=== PATIENT | female | born 1955 | race Two or more races ===

== ENCOUNTER 2023-01-30 15:38 | Emergency (ER) | payer BC, MEDICARE, SELFPAY ==
[2023-01-30 15:46] VITALS: BP 172/88; PULSE 103; RESP 18; TEMP 38.8; O2SAT 100; BMI 24.0
--- NOTE | 2023-01-30 15:55 | XR_ITS ---
[facility] [id number] Patient Name: FRANKLYN CHAMBERS MRN: [id number] date: 1955 Sex: F Assigned Patient Location: ED.MAIN Current Patient Location: ED.MAIN Accession/Order Number: [id number] Exam Date: 01/30/2023 16:40 Report Date: 01/30/2023 17:11 At the request of: GILMA FAGAN Procedure: XR chest 1V EXAMINATION: XR chest 1V 01/30/2023 2:09 PM PST HISTORY: cough TECHNIQUE: Single frontal view of the chest acquired. COMPARISONS: Chest x-ray 10/07/2020. FINDINGS: Lines/tubes/other: None. Heart and mediastinum: The heart and the mediastinum are within normal limits for technique. Bones: No acute osseous abnormality. Lungs: Minimal patchy bibasilar opacification. No pulmonary edema. Pleura: There is no significant pleural effusion or pneumothorax. Other: None. XR/XR chest 1V IMPRESSION: Minimal bibasilar opacification which could represent cicatricial changes from prior pneumonia, superimposition of normal tissues,, pneumonia, or aspiration. Electronically authenticated by: MAINOR SONI Date: 01/30/2023 17:11
[2023-01-30 16:01] VITALS: O2SAT 100
[2023-01-30] MEDS: ONDANSETRON 4 MG RAPDIS TABLET SL (16:09)
[2023-01-30] MEDS: ACETAMINOPHEN 500 MG TABLET 1000 MG PO (16:09)
[2023-01-30 16:31] LABS: Influenza Virus A Antigen Negative; Influenza Virus B Antigen Negative; Internal Control Within Normal Limits
[2023-01-30 16:32] LABS: SARS-CoV-2 Ag POSITIVE (NEGATIVE)
[2023-01-30 16:35] LABS: Bilirubin Urine NEGATIVE (NEGATIVE); Blood Urine SMALL (NEGATIVE); Clarity Urine CLEAR (CLEAR); Color Urine LT. YELLOW (YELLOW); Glucose Urine UA >=1000 mg/dL (NEGATIVE); Ketones Urine NEGATIVE (NEGATIVE); Leukocyte Esterase Urine NEGATIVE (NEGATIVE); Nitrite Urine NEGATIVE (NEGATIVE); Protein Urine >=300 mg/dL (NEG/TRACE); Urobilinogen Urine 0.2 EU/dL (0.2-1.0)
[2023-01-30 16:45] LABS: Bacteria Urine TRACE #/HPF (NONE SEEN); Cast Seen? NONE SEEN #/LPF (NONE SEEN); Crystals Seen? None Seen #/HPF (None Seen); Mucus Urine NONE SEEN (NONE SEEN); RBC Urine 0-2 #/HPF (0-2); Squamous Epithelial Cell Urine FEW #/LPF (NONE/RARE); WBC Urine NONE SEEN #/HPF (NONE SEEN)
--- NOTE | 2023-01-30 17:05 | ED.GENADUL1 ---
Documented by User: Justa Osborne 01/30/23 17:12 HPI - General Adult General Chief complaint: Nausea/Vomiting/Diarrhea Stated complaint: Nausea Time Seen by Provider: 01/30/23 15:55 Source: patient Mode of arrival: Wheelchair History of Present Illness HPI narrative: 67-year-old female presents with a chief complaint of fatigue and nausea vomiting fevers. States she began having a cough last evening woke this morning with chills nausea and vomited prior to arrival. She had been nauseated and unable take medications at home. Patient did not take anything for a fever at home she is febrile upon arrival 101.9 Fahrenheit. Patient does not appear toxic. She is type II diabetic and states has not taken her medications today as she was too nauseous. Patient's lung sounds are clear she is not hypoxic. She denies any known sick contacts wibut does work in the public. Related Data Previous Rx's Medication Instructions Recorded ondansetron 4 mg disintegrating 4 mg PO Q8H PRN nausea and 01/30/23 tablet vomiting 48 hours #7 tabs Allergies Allergy/AdvReac Type Severity Reaction Status Date / Time Sulfa (Sulfonamide Allergy Severe Verified 01/30/23 15:54 Antibiotics) Review of Systems ROS Narrative All Systems are negative except as noted/marked.All systems reviewed and otherwise negative Exam Narrative Exam Narrative: Nurses note and vital signs reviewed and patient is not hypoxic. General: The patient appears Ill but nontoxic, she is febrile Skin: Warm, dry, no pallor noted. There is no rash noted. Head: Normocephalic, atraumatic Eye: Normal conjunctiva, no drainage, EOMI. PERRL Ears, Nose, Mouth, and Throat: oral mucosa is moist. Nares patent. Mouth without vesicles. Ear canals patent. Tm's without Erythema Cardiovascular: Regular Rate and Rhythm Respiratory: Patient is in no distress, no accessory muscle use, lungs are clear to auscultation, no wheezing, rales or rhonchi Back: non-tender, no CVA tenderness bilaterally to percussion. GI: Normal bowel sounds, no tenderness to palpation, no masses appreciated. No rebound, guarding, or rigidity noted. Musculoskeletal: She moves all extremity is well no extremity swelling, Neurological: A&O x4, normal speech Psychiatric: Cooperative Constitutional Vital Signs, click to edit/add: Last Vital Signs Temp 101.9 F H 01/30/23 15:46 Pulse 103 H 01/30/23 15:46 Resp 18 01/30/23 15:46 BP 172/88 H 01/30/23 15:46 Pulse Ox 100 01/30/23 16:01 O2 Del Method Room Air 01/30/23 16:01 Course Vital Signs Vital signs: Vital Signs Temperature 101.9 F H 01/30/23 15:46 Pulse Rate 103 H 01/30/23 15:46 Respiratory Rate 18 01/30/23 15:46 Blood Pressure 172/88 H 01/30/23 15:46 Pulse Oximetry 100 01/30/23 15:46 Oxygen Delivery Method Room Air 01/30/23 15:46 Temperature 101.9 F H 01/30/23 15:46 Pulse Rate 103 H 01/30/23 15:46 Respiratory Rate 18 01/30/23 15:46 Blood Pressure 172/88 H 01/30/23 15:46 Pulse Oximetry 100 01/30/23 16:01 Oxygen Delivery Method Room Air 01/30/23 16:01 Medical Decision Making MDM Narrative Medical decision making narrative: Patient presented to the emergency room chief complaint of Ear, chills and nausea since. She states she did vomit on the way here to the emergency room. Been unable to get into her primary care physician as her symptoms started yesterday at her primary doctor is in [place]. Patient's vital signs are stable here in emergency room she was medicated here for her fever. fever improved with tylenol. Covid swab is positive.chest xray shows no acute active disease or pneumonia Patient states she feels much better going home. pt will be discharged home with covid instructions as well as Zofran for nausea. Patient encouraged to continue with fluids and take her medications when she gets home.Patient is off this week from work. She will be able to return to work as scheduled. Differential Diagnosis Differential Diagnosis: urI, pneumonia, covid, influenza Medical Records Medical records reviewed: Yes I reviewed the patient's medical records Lab Data Lab results reviewed: Yes I reviewed the patient's lab results Labs: Lab Results 01/30/23 01/30/23 Range/Units 15:55 16:26 Urine Color Lt. yellow (YELLOW) Urine Clarity Clear (CLEAR) Urine pH 6.0 (5.0-9.0) Ur Specific Dawson 1.020 (1.005-1.025) Urine Protein >=300 A (NEG/TRACE) mg/dL Urine Glucose (UA) >=1000 A (NEGATIVE) mg/dL Urine Ketones Negative (NEGATIVE) mg/dL Urine Occult Blood Small A (NEGATIVE) Urine Nitrite Negative (NEGATIVE) Urine Bilirubin Negative (NEGATIVE) Urine Urobilinogen 0.2 (0.2-1.0) EU/dL Ur Leukocyte Esterase Negative (NEGATIVE) Urine RBC 0-2 (0-2) #/HPF Urine WBC None seen (NONE SEEN) #/HPF Ur Squamous Epith Cells Few A (NONE/RARE) #/LPF Urine Crystals None seen (None Seen) #/HPF Urine Bacteria Trace A (NONE SEEN) #/HPF Urine Casts None seen (NONE SEEN) #/LPF Urine Mucus None seen (NONE SEEN) SARS-CoV-2 (PCR) Positive A (NEGATIVE) Influenza Type A Ag Negative Influenza Type B Ag Negative Imaging Data Chest x-ray: My impression: No active disease, no infiltrate Discharge Plan Discharge Chief Complaint: Nausea/Vomiting/Diarrhea Clinical Impression: COVID-19 Patient Disposition: Home, Self-Care Time of Disposition Decision: 17:01 Condition: Good Mode of Transportation: Private Vehicle Prescriptions / Home Meds: New ondansetron 4 mg tablet,disintegrating 4 mg PO Q8H PRN (Reason: nausea and vomiting) 2 Days Qty: 7 0RF Instructions: How To Wash Your Hands (ED), COVID-19 (Coronavirus Disease 2019) (ED) Stand Alone Forms: Portal Instructions Referrals: Physician,Non-Staff, [Primary Care Provider] - 1 week Discharge Date/Time: 01/30/23 17:18 Documented by User: Víctor Keys MD 01/30/23 20:28 HPI - General Adult General Chief complaint: Nausea/Vomiting/Diarrhea Stated complaint: Nausea Time Seen by Provider: 01/30/23 15:55 Related Data Previous Rx's Medication Instructions Recorded ondansetron 4 mg disintegrating 4 mg PO Q8H PRN nausea and 01/30/23 tablet vomiting 48 hours #7 tabs Allergies Allergy/AdvReac Type Severity Reaction Status Date / Time Sulfa (Sulfonamide Allergy Severe Verified 01/30/23 15:54 Antibiotics) Exam Constitutional Vital Signs, click to edit/add: Last Vital Signs Temp 101.9 F H 01/30/23 15:46 Pulse 103 H 01/30/23 15:46 Resp 18 01/30/23 15:46 BP 172/88 H 01/30/23 15:46 Pulse Ox 100 01/30/23 16:01 O2 Del Method Room Air 01/30/23 16:01 Course Vital Signs Vital signs: Vital Signs Temperature 101.9 F H 01/30/23 15:46 Pulse Rate 103 H 01/30/23 15:46 Respiratory Rate 18 01/30/23 15:46 Blood Pressure 172/88 H 01/30/23 15:46 Pulse Oximetry 100 01/30/23 15:46 Oxygen Delivery Method Room Air 01/30/23 15:46 Temperature 101.9 F H 01/30/23 15:46 Pulse Rate 103 H 01/30/23 15:46 Respiratory Rate 18 01/30/23 15:46 Blood Pressure 172/88 H 01/30/23 15:46 Pulse Oximetry 100 01/30/23 16:01 Oxygen Delivery Method Room Air 01/30/23 16:01 Medical Decision Making MDM Narrative Medical decision making narrative: Patient presented to the emergency room chief complaint of Ear, chills and nausea since. She states she did vomit on the way here to the emergency room. Been unable to get into her primary care physician as her symptoms started yesterday at her primary doctor is in [place]. Patient's vital signs are stable here in emergency room she was medicated here for her fever. fever improved with tylenol. Covid swab is positive.chest xray shows no acute active disease or pneumonia Patient states she feels much better going home. pt will be discharged home with covid instructions as well as Zofran for nausea. Patient encouraged to continue with fluids and take her medications when she gets home.Patient is off this week from work. She will be able to return to work as scheduled. I, Dr Keys, have reviewed the above progress note and course of action in the ER; agree with the above. I have personally seen and evaluated this patient, gone over history and physical, and discussed disposition and treatment plan with the patient. Lab Data Labs: Lab Results 01/30/23 01/30/23 Range/Units 15:55 16:26 Urine Color Lt. yellow (YELLOW) Urine Clarity Clear (CLEAR) Urine pH 6.0 (5.0-9.0) Ur Specific Dawson 1.020 (1.005-1.025) Urine Protein >=300 A (NEG/TRACE) mg/dL Urine Glucose (UA) >=1000 A (NEGATIVE) mg/dL Urine Ketones Negative (NEGATIVE) mg/dL Urine Occult Blood Small A (NEGATIVE) Urine Nitrite Negative (NEGATIVE) Urine Bilirubin Negative (NEGATIVE) Urine Urobilinogen 0.2 (0.2-1.0) EU/dL Ur Leukocyte Esterase Negative (NEGATIVE) Urine RBC 0-2 (0-2) #/HPF Urine WBC None seen (NONE SEEN) #/HPF Ur Squamous Epith Cells Few A (NONE/RARE) #/LPF Urine Crystals None seen (None Seen) #/HPF Urine Bacteria Trace A (NONE SEEN) #/HPF Urine Casts None seen (NONE SEEN) #/LPF Urine Mucus None seen (NONE SEEN) SARS-CoV-2 (PCR) Positive A (NEGATIVE) Influenza Type A Ag Negative Influenza Type B Ag Negative Discharge Plan Discharge Chief Complaint: Nausea/Vomiting/Diarrhea Clinical Impression: COVID-19 Patient Disposition: Home, Self-Care Time of Disposition Decision: 17:01 Condition: Good Mode of Transportation: Private Vehicle Prescriptions / Home Meds: New ondansetron 4 mg tablet,disintegrating 4 mg PO Q8H PRN (Reason: nausea and vomiting) 2 Days Qty: 7 0RF Instructions: How To Wash Your Hands (ED), COVID-19 (Coronavirus Disease 2019) (ED) Stand Alone Forms: Portal Instructions Referrals: Physician,Non-Staff, MD [Primary Care Provider] - 1 week Discharge Date/Time: 01/30/23 17:18
== END 2023-01-30 17:18 | disposition home or self-care (01) ==
PROVIDERS: Physician Assistant; Emergency Provider Emergency Medicine
DX: U07.1 COVID-19 (principal); R50.9 Fever, unspecified; E11.9 Type 2 diabetes mellitus without complications
CPT/HCPCS: 71045; 81001; 87804; 87811; 99285

== ENCOUNTER 2025-01-26 15:20 | Emergency (ER) | payer MEDICARE, MEDICAID, SELFPAY ==
--- OUTSIDE RECORDS SUMMARY | 2023-11-05 09:45 | XMS_ITS ---
Author Organization [facility] in [place] Address [address] [place] [address] Care Team Providers Care Duplicator Punch Set Up Operator Name Role Phone Agustin Licona Primary Care Provider REASON FOR VISIT discuss thyroid biopsy Encounters Encounter Location Date Provider Diagnosis [place] [address] [place] [address] 11/05/2023 Agustin Licona Plan Of Treatment Next Appt Details Provider Name:Agustin neves, 06/14/2025 02:00:00 PM, [address] [place], [address], Progress Notes * Milli MONROYDOB:1955 (69 yo F)Acc No.[id number]:11/05/2023 UNLOCKED PROGRESS NOTE Established Patient: Milli CAMPOS :?ELIAS BeachOB:1955???Age:68 Y ???Sex:FemaleDate:4Phone:[phone]:[address] [place] [address] Subjective: * Chief Complaints: * 1 . Discuss thyroid biopsy. * Medical History: Objective: * Vitals: Assessment: Plan: * Treatment: * * Electronic signature of Agustin Licona DO, [id number] on 01/26/2025 at 04:23 PM ESTSign off status: PendingVisit Status:?R/S (Rescheduled) * Provider: Rajan Licona DO Date: 0 11/05/2023 Generated for Printing/Faxing/eTransmitting on:?01/26/2025 04:23 PM EST
--- OUTSIDE RECORDS SUMMARY | 2024-01-06 10:15 | XMS_ITS ---
Author Organization [facility] in [place] Address [address] [place] [address] Care Team Providers Care Trouble Locater Name Role Phone Agustin Licona Primary Care Provider [phone] REASON FOR VISIT -6 Month Follow Up- Encounters Encounter Location Date Provider Diagnosis [address] [address] 01/06/2024 Agustin Licona Plan Of Treatment Next Appt Details Provider Name:Agustin neves, 06/14/2025 02:00:00 PM, [address] [place], [address], Progress Notes * Milli MONROYDOB:1955 (69 yo F)Acc No.[id number]:01/06/2024 UNLOCKED PROGRESS NOTE Established Patient: Milli CAMPOS :?ELIAS BeachOB:1955???Age:68 Y ???Sex:FemaleDate:4Phone:[phone]:[address] [place] [address] Subjective: * Chief Complaints: * 1 . -6 Month Follow Up-. * Medical History: Objective: * Vitals: Assessment: Plan: * Treatment: * * Electronic signature of Agustin Licona DO, [id number] on 01/26/2025 at 04:23 PM ESTSign off status: PendingVisit Status:?R/S (Rescheduled) * Provider: Rajan Licona DO Date: 03/07/2023 Generated for Printing/Faxing/eTransmitting on:?01/26/2025 04:23 PM EST
--- OUTSIDE RECORDS SUMMARY | 2024-02-01 08:15 | XMS_ITS ---
Author Organization [facility] in [place] Address [address] [place] [address] Care Team Providers Care Iron Miner Name Role Phone Agustin Licona Primary Care Provider REASON FOR VISIT -6 Month Follow Up- Encounters Encounter Location Date Provider Diagnosis [place] [address] [place] [address] 02/01/2024 Agustin Licona Plan Of Treatment Next Appt Details Provider Name:Agutsin neves, 06/14/2025 02:00:00 PM, [address] [place], [address], Progress Notes * Milli MONROYDOB:1955 (69 yo F)Acc No.[id number]:02/01/2024 UNLOCKED PROGRESS NOTE Established Patient: Milli CAMPOS :?ELIAS BeachOB:1955???Age:68 Y ???Sex:FemaleDate:4Phone:[phone]:[address] [place] [address] Subjective: * Chief Complaints: * 1 . -6 Month Follow Up-. * Medical History: Objective: * Vitals: Assessment: Plan: * Treatment: * * Electronic signature of Agustin Licona DO, [id number] on 01/26/2025 at 04:22 PM ESTSign off status: PendingVisit Status:?CANC (Cancelled) * Provider: Rajan Licona DO Date: 1 04/03/2023 Generated for Printing/Faxing/eTransmitting on:?01/26/2025 04:22 PM EST
--- OUTSIDE RECORDS SUMMARY | 2024-02-15 08:45 | XMS_ITS ---
Author Organization The [facility] in [place] Address [address] [place] [address] Care Team Providers Care Boarding Mother Name Role Phone Agustin Licona Primary Care Provider Encounters Encounter Location Date Provider Diagnosis [place] [address] [place] [address] 02/15/2024 Agustin Licona Plan Of Treatment Next Appt Details Provider Name:Agustin neves, 06/14/2025 02:00:00 PM, [address] [place], [address], Progress Notes * REYES MilliDOB:1955 (69 yo F)Acc No.[id number]:02/15/2024 UNLOCKED PROGRESS NOTE Established Patient: Milli CAMPOS :?Agustin Licona DODOB:1955???Age:68 Y ???Sex:FemaleDate:02/15/2024Phone:[phone]:[address] [place] [phone] Subjective: * Chief Complaints: * * Medical History: Objective: * Vitals: Assessment: Plan: * Treatment: * * Electronic signature of Agustin Licona DO, [id number] on 01/26/2025 at 04:23 PM ESTSign off status: PendingVisit Status:?R/S (Rescheduled) * Provider: Rajan Licona DO Date: 0 02/15/2024 Generated for Printing/Faxing/eTransmitting on:?01/26/2025 04:23 PM EST
--- OUTSIDE RECORDS SUMMARY | 2024-02-19 06:15 | XMS_ITS ---
Author Organization The [facility] in [place] Address [address] [place] [address] Care Team Providers Care Warehouse Shipping Supervisor Name Role Phone Agustin Licona Primary Care Provider REASON FOR VISIT follow up Encounters Encounter Location Date Provider Diagnosis [facility] [address] [place] [address] 02/19/2024 Agustin Licona Plan Of Treatment Next Appt Details Provider Name:Agustin neves, 06/14/2025 02:00:00 PM, [address] [place], [address], Progress Notes * Milli MONROYDOB:1955 (69 yo F)Acc No.[id number]:02/19/2024 UNLOCKED PROGRESS NOTE Established Patient: Milli CAMPOS :?ELIAS BeachOB:1955???Age:68 Y ???Sex:FemaleDate:02/19/2024Phone:[phone]:[address] [place] [address] Subjective: * Chief Complaints: * 1 . Follow up. * Medical History: Objective: * Vitals: Assessment: Plan: * Treatment: * * Electronic signature of Agustin Licona DO, [id number] on 01/26/2025 at 04:24 PM ESTSign off status: PendingVisit Status:?R/S (Rescheduled) * Provider: Rajan Licona DO Date: 0 02/19/2024 Generated for Printing/Faxing/eTransmitting on:?01/26/2025 04:24 PM EST
--- OUTSIDE RECORDS SUMMARY | 2024-12-14 09:00 | XMS_ITS ---
Author Organization The [facility] in [place] Address [address] [place] [address] Care Team Providers Care Yard Attendant Name Role Phone Agustin Licona Primary Care Provider REASON FOR VISIT -6 Month Follow Up-, DM EYE EXAM DUE Encounters Encounter Location Date Provider Diagnosis [facility] [address] [place] [address] 12/14/2024 Agustin Licona Plan Of Treatment Next Appt Details Provider Name:Agustin neves, 06/14/2025 02:00:00 PM, [address] [place], [address], Progress Notes * Milli MONROYDOB:1955 (69 yo F)Acc No.[id number]:12/14/2024 UNLOCKED PROGRESS NOTE Established Patient: Milli CAMPOS :?ELIAS BeachOB:1955???Age:69 Y ???Sex:FemaleDate:12/14/2024Phone:[phone]:[address] [place] [address] Subjective: * Chief Complaints: * 1 . -6 Month Follow Up-, DM EYE EXAM DUE. * Medical History: Objective: * Vitals: Assessment: Plan: * Treatment: * * Electronic signature of Agustin Licona DO, [id number] on 01/26/2025 at 04:22 PM ESTSign off status: PendingVisit Status:?R/S (Rescheduled) * Provider: Rajan Licona, DO Date: 02/14/2024 Generated for Printing/Faxing/eTransmitting on:?01/26/2025 04:22 PM EST
[2025-01-26 15:28] VITALS: BP 130/52; PULSE 99; TEMP 39.6; O2SAT 96; BMI 25.1
[2025-01-26 15:37] VITALS: O2SAT 88
[2025-01-26 15:39] VITALS: O2SAT 97
--- NOTE | 2025-01-26 15:43 | ECG_ITS ---
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 Measurements Intervals [place] Rate: 90 P: 47 UT: 138 QRS: -51 QRSD: 88 T: 85 QT: 332 QTc: 380 Interpretive Statements 1100 Sinus rhythm 2420 RSR (QR) in lead V1/V2, consistent with right ventricular conduction delay 2630 Left anterior fascicular block 4068 Nonspecific Twave abnormality 8003 Consistent with pulmonary disease 9150 abnormal ECG Compared to ECG 10/07/2020 19:17:07 Left ventricular hypertrophy no longer present Electronically Signed On 01-26-2025 18:12:56 EST by BA PIERSON M.D.
--- NOTE | 2025-01-26 15:43 | XR_ITS ---
[address] [address] Patient Name: FRANKLYN CHAMBERS MRN: [id number] date: 1955 Sex: F Assigned Patient Location: ER Current Patient Location: ER Accession/Order Number: [id number] Exam Date: 01/26/2025 16:08 Report Date: 01/26/2025 16:15 At the request of: YARON NAIR MD Procedure: XR chest 1V XR chest 1V 01/26/2025 4:12 PM SIGNS AND SYMPTOMS: ^sob, cough, nausea, fever PROTOCOL: Frontal radiograph of the chest COMPARISON: 01/30/2023 FINDINGS: The trachea is midline. Atherosclerotic changes are noted in the thoracic aorta. The heart and mediastinal structures are within normal limits. The lung parenchyma is clear. The bony thorax is intact. Degenerative changes are noted in the thoracic spine. XR/XR chest 1V IMPRESSION: No acute cardiopulmonary pathology. Impression dictated by: Romuol Hale M.D. 01/26/2025 4:15 PM Dictation Location: [place] [address] Electronically authenticated by: [id number] Y Date: 01/26/2025 16:15
[2025-01-26 15:58] VITALS: TEMP 39.7
[2025-01-26] MEDS: ACETAMINOPHEN 325 MG TABLET 650 MG PO (15:58)
[2025-01-26 15:59] LABS: SARS-CoV-2 Ag NEGATIVE (NEGATIVE)
[2025-01-26 16:01] LABS: Hematocrit 33.2 % (36.0-48.0); Hemoglobin 11.6 g/dL (12.0-16.0); Immature Granulocytes Abs Auto 0.02 10^3/uL (0.00-0.03); Immature Granulocytes Pct Auto 0.3 % (0.0-0.5); Lymphocytes Absolute Auto 1.1 10^3/uL (1.2-3.8); Mean Corpuscular HGB Conc 34.9 g/dL (29.9-35.2); Mean Corpuscular Hemoglobin 35.8 pg (26.7-34.0); Mean Corpuscular Volume 102.5 fL (81.0-99.0); Platelet Count 149 10^3/uL (150-450); Red Blood Count 3.24 10^6/uL (4.20-5.40); White Blood Count 6.8 10^3/uL (4.0-11.0)
[2025-01-26 16:07] VITALS: PULSE 92
[2025-01-26 16:13] LABS: INR 1.08; Prothrombin Time 11.3 sec (9.0-11.6)
[2025-01-26 16:15] LABS: Alanine Aminotransferase 45 U/L (14-59); Albumin Globulin Ratio 1.0; Albumin Level 3.4 g/dL (3.4-5.0); Alkaline Phosphatase 186 U/L (46-116); Anion Gap 5.9; Aspartate Amino Transferase 65 U/L (15-37); Blood Urea Nitrogen 5.0 mg/dL (7.0-18.0); Calcium 8.6 mg/dL (8.5-10.1); Carbon Dioxide 31.5 mmol/L (21.0-32.0); Chloride 101 mmol/L (98-107); Estimated GFR (African America 26 (>=60 mL/min/1.73m^2); Estimated GFR (Non-African Ame 22 (>=60 mL/min/1.73m^2); Globulin 3.3 g/dL; Glucose 139 mg/dL (74-106); Potassium 3.4 mmol/L (3.5-5.1); Sodium 135 mmol/L (136-145); Total Protein 6.7 g/dL (6.4-8.2)
[2025-01-26 16:21] LABS: Lactate/Lactic Acid 1.0 mmol/L (0.4-2.0)
--- OUTSIDE RECORDS SUMMARY | 2025-01-26 16:23 | XMS_ITS | Data Portability ---
Author Organization [place] - [employer] , [facility] Address [address] [address] Assessment Encounter Date Assessment Date Assessment LastModified by Organization Details LastModified Time 06/10/2024 06/10/2024 I spent _30 jeri shanita mfyp-rp-dljx with the patient. Over half of the time was spent in discussion of the diagnosis, the treatment plan including risks, benefits and alternatives, and the importance of adherence. Verbal Consents obtained for [facility]. Patient educated on program and services. Followup as below, patient educated that if a need arises they can contact [facility] provider as needed. Direct provider number provided to patient. Self Management Activities: Patient understands the importance of and agrees to the following Self Management Activities at today's visit: Blood pressure management, daily weights, blood sugar monitoring. Patient agrees to perform this daily. Recommendations: Next PCP appointment: Dr. Licona, sees every 6 mos Next Nephrology appointment: Dr. Garcia, sees monthly at dialysis Next Vascular appointment:Dr. Yuan, as needed Next appointment: with RADHA Kathy on 06/16/24, has questions about medicare/medicaid eligibility spfxzlax7Cxv iziygzcjn52/02/2025 16:17:05 Plan of Treatment Reminders Order DateSubmit DateProviderLast Modified ByOrganization DetailsLast Modified TimeDetailsAppointmentsNone recorded.LabNone recorded.ReferralNone recorded. ProceduresNone recorded.SurgeriesNone recorded.ImagingNone recorded.Medication OrdersNone recorded. Patient TargetsNo targets recorded. Patient Instructions Encounter Date Encounter Id Patient Instructions Last Modified By Organization Details Last Modified Time 06/10/2024 [id number] Top Three Goals: The Patient agrees to focus on improving the top three health conditions identified on today's DMITRY visit, as documented in the Assessment and Plan. Assigned prioritization reflects a collaborative effort, and includes input from the Patient. The patient will work on these conditions with a [facility] RN, who will create patient-specific care goals based on today's visit. The patient will receive a [facility] Plan of Care within 60 days, and follow-up visits with both the RN and DMITRY will be scheduled according to the personalized plan of care. Instructions: You had a [facility] Follow Up Visit today, as recommended by your health plan. Here are some important steps to help you stay healthy: 1. Get Moving: Aim for at least 30 minutes of physical activity, 5 days a week. 2. Eat Smart: Focus on a diet low in sodium and saturated fats to keep your heart healthy. 3. Avoid Harmful Habits: Stay away from smoking and limit or avoid alcohol. 4. Keep Vaccinations Current: Make sure your vaccinations are up to date. 5. Take Medications: Remember to take your daily medications as prescribed. 6. Stay on top of Screenings: Keep up with your preventive screening tests to catch any issues early. 7. Track Your Health: Monitor your blood pressure, weight, and other cifuentes health stats regularly. 8. Follow Up: Keep in touch with your [facility] Team, Primary Care Provider, and any specialists as scheduled to manage your health conditions. Following these recommendations will help you maintain your health and well-being. [email or web address] Not available 06/09/2024 12:43:44 I have reviewed the note by Nori James NP from the patient???s visit on 06/10/2024. While not physically present, I have reviewed all pertinent details and agree with the assessment and plan. Themedical decision-making and management are appropriate to the patient???s condition. Milli Monroy is a 69-year-old female with ESRD on ICHD (TTS schedule), longstanding HTN and DM2, and a maturing LUE AV fistula now in successful use. She is tolerating dialysis well with occasional post-HD hypotension. The patient has not been screened for transplant but expresses interest in attending an education session. She reports concern over potential side effects of anti- rejection medications given prior GI intolerance. Recent labs reflect stable ESRD parameters and A1c 5.2 (03/25/24). BP at visit was 141/61. No access concerns reported. Weight and BMI are stable at 116 lbs and 24.2, respectively. No acute hospitalizations since last follow-up. She remains on a non-statin regimen due to prior intolerance and continues phosphate binding therapy and Sensipar. Counseling today included dietary phosphorus and sodium management, blood pressure goals, and ongoing home glucose monitoring. Patient was educated on transplant, medication adherence,and dialysis self-care. We will continue close coordination with her dialysis center and mechanical engineering manager, Dr. Garcia. Patient will follow up with [facility] and PCP as scheduled. I support and agree with GERRI James???s plan of care and appreciate the comprehensive follow-up. Júnior Ramirez M.D. Attending Aqpcdasltkhubqqeio031Uii mlmvudfrd67/09/2025 07:50:02 Reason for Referral None Reported. Problems Name Problem SNOMED Code Status Onset Date Resolution Date Notes Provider Name and Address Organization Details Recorded Time End stage renal failure on dialysis [id number] Active 06/09/2024 Nori James DOCTOR OF AUDIOLOGY [address], [place], [address], [employer]06/09/2024 12:56:52Type 2 diabetes [id number] 06/09/2024Nori James DOCTOR OF AUDIOLOGY [address], [place], [address], [employer]06/09/2024 12:57:[id number]/01/2025Nori James DOCTOR OF AUDIOLOGY [address], [place], [address], [facility] [employer]06/09/2024 12:57:49Renal gvcppfysmryh17597297Mddqai 06/09/2024Nori James DOCTOR OF AUDIOLOGY [address], [place], [address], [facility] [employer]06/09/2024 12:57:59Arteriovenous [id number] 06/09/2024Nori James DOCTOR OF AUDIOLOGY [address], [place], [address], [facility] [employer]06/09/2024 12:58:07Mixed [id number] 06/09/2024Nori James DOCTOR OF AUDIOLOGY [address], [place], [address], [facility]06/09/2024 12:58:23Anemia of chronic lxbcnzh324485144Lrftef 06/09/2024Nori James DOCTOR OF AUDIOLOGY [address], [place], [place], [address] [place] [address], [facility]06/09/2024 12:59:09Hyperparathyroidism due to renal ugrjxciobylml53144722Shfeaz30/01/2025Nori James DOCTOR OF AUDIOLOGY [address], [place], [address] [place] [address], [facility]06/09/2024 12:59:26Qmakswbstfjlxfaih06728463Miemwi49/01/2025 Nori James DOCTOR OF AUDIOLOGY [address], [place], [address] [place] [address], [facility]06/09/2024 12:59:43Metabolic [id number] 06/09/2024Nori James DOCTOR OF AUDIOLOGY [address], [place], [address] [place] [address], [facility]06/09/2024 13:03:28 Problem Notes None recorded. Procedures Surgical History Date Name Laterality Status Provider Name and Address Organization Details Recorded Time creation of upper limb arteriovenous fistulacompletedNori James DOCTOR OF AUDIOLOGY [address], [place], [address] [place] [address], [facility]06/10/2024 15:55:25 Imaging Results None recorded. Procedure Notes None recorded. Medical Equipment None Reported. Allergies Allergen ID Allergen Name Allergen Category Reaction Reaction Severity Criticality Documentation Date Start Date Code Code System Note Provider Name and Address Organization Details Recorded Time 07192 Substance with sulfo namide structure and antibacterial mechanism of action (substance) medication rash Not available Not /02/[id number] Wheaton DOCTOR OF AUDIOLOGY [address], [place], [address] [place] [address], [facility]06/10/2024 10:30:4336780mqkuamehtcsqhkhecmmaxhdigoza Not available Not knsflqomw95/02/[id number] Wheaton DOCTOR OF AUDIOLOGY [address], [place], [address] [place] [address], [facility]06/10/2024 10:30:0811349kegwzdaodfgBrx availableNot available Not available Not gelxqiigh93/02/[id number] Wheaton DOCTOR OF AUDIOLOGY [address], [place], [address], [facility] - [employer]06/10/2024 10:31:1772976cfrezdaeamwrsrutajigleczplfdv Not available Not /02/[id number] Wheaton DOCTOR OF AUDIOLOGY [address], [place], [address], [facility] - [employer]06/10/2024 10:31:42 Medications Name Sig Start Date Stop Date Status Note LastModified by Organization Details LastModified Time pioglitazone 15 mg tablet TAKE 1 TABLET BY MOUTH DAILY activeNot AvailableNot AvailableNot AvailablePrilosec 40 mg capsule,delayed releaseTake 1 capsule every day by oral route.activeNot AvailableNot Available Not Availablehydralazine 25 mg tabletTAKE 1 TABLET BY MOUTH IN THE MORNING AND 1 TABLET AT RKYTENZ0406/10/2024ompletedNot AvailableNot AvailableNot Available sodium chloride 5 % eye ointmentAPPLY SMALL AMOUNT IN RIGHT EYE EVERY NIGHT AT BEDTIME DIRECTEDactiveNot AvailableNot AvailableNot Availablenifedipine ER 60 mg tablet,extended release 24 hrTAKE ONE TABLET BY MOUTH TWICE A DAY AT 8 AM AND 3 PMactiveNot AvailableNot AvailableNot Availablesodium bicarbonate 650 mg tabletTAKE 1 TABLET BY MOUTH DAILY06/10/2024ompletedNot AvailableNot Available Not Availableoxybutynin chloride ER 5 mg tablet,extended release 24 hrTAKE 1 TABLET BY MOUTH ONCE DAILY06/10/2024ompletedNot AvailableNot AvailableNot Availablehydralazine 50 mg tabletTAKE 1 TABLET BY MOUTH IN THE MORNING AND 1 TABLET BEFORE BEDTIMEactiveNot AvailableNot AvailableNot Availabletimolol maleate 0.5 % eye dropsINSTILL 1 DROP INTO RIGHT EYE EVERY MORNING DIRECTED activeNot AvailableNot AvailableNot Availablenifedipine ER 60 mg tablet,extended releaseTAKE 1 TABLET BY MOUTH TWICE DAILY AT 8 AM AND 3 PM5completedNot AvailableNot AvailableNot Availableglipizide 5 mg tabletTAKE 1 TABLET BY MOUTH DAILY 30 MINUTES BEFORE BREAKFASTactiveNot AvailableNot AvailableNot Available Sensipar 60 mg tabletTake 1 tablet every day by oral route.activeNot Available Not AvailableNot Availablesevelamer carbonate 800 mg tabletTAKE 2 TABLETS BY MOUTH THREE TIMES DAILY WITH MEALSactiveNot AvailableNot AvailableNot Available Vitals None Recorded Social History None recorded. Functional Status None recorded. Mental Status None recorded. Family History Nothing Reported. Medical History No medical history recorded. Gynecological HistoryNo gynecological history recorded. Obstetrics History GPAL:G 0 P 0 0 0 0 Past Encounters Encounter ID Performer Location Encounter Start Date Encounter Closed Date Diagnosis/Indication Diagnosis SNOMED-CT Code Diagnosis ICD10 Code Diagnosis IMO Codes Diagnosis Note [id number] Nori James [facility] [employer] [address] [place] [address] 06/10/2024 15:23:00 06/24/2024 10:14:41 End stage renal failure on dialysis [id number] N18.6 Z99.2 087522 - ICHD TTS at [facility], follows with nephrology Dr. Garcia- ESRD due to longstanding HTN and diabetes- On HD since 12/2023- Access: Left arm AVF, vascular Dr. Yuan- Tolerating dialysis well, reports occasional cramping/ hypotension following treatment- Reports compliance with dialysis- Is not on transplant list, concerned she will have side effects from anti-rejection medicationsRenal hapftlofmypi14746500F88.9 3376 - BP during visit: 141/61- Patient does not check BP at home, reports overall good control with some hypotension at dialysis- Currently taking: nifedipine 60 mg BID, hydralazine 50 mg- Recommendations: Limit sodium 2g daily, Weight Reduction if applicable, 30min/5 days a week physical activity, limit alcohol consumption.-Call the clinic if persists > 130/80 or is < 100/70- BP Goal <130/80Type 2 diabetes rsbhohbj65180136A92.22 N18.6 Z99.2 [id number] -Controlled-Last HbA1c 5.2 on 03/25/24-taking actos and glipizide-Patient checks BG regularly, continue regular blood sugar checks.- Recommendations: Discussed exercise plan (30 mins/5days ) and increasing physical activity.- Discussed diet reduced processed foods, reduced intake of high fructose foods, avoiding high salt/canned foods, increased fresh natural foods, smoking cessation in active smokers- Goal A1c <7Anemia of chronic gvnznar565314828B62.8 97824 - chronic/stable anemia of CKD, last Hb in chart 9.0 on 12/2023- EPO/iron per protocol at dialysis fllfUjxvemncrucl96614698X66.5 9805 -K+ 4.4, low K+ diet dwjttjdoCctdgjjevaxufjfhf18903082I76.39 9949 -taking renvela 2 tabs with meals-discussed foods high in PO4 to avoid Health Concerns Section Related Observation LastModified by Organization Detai ls LastModified Time None Recorded Concern Status LastModified by Organization Details LastModified Time None Recorded Advance Directives Directive None Recorded Payers Insurance Date Sequence Insurance Name Policy Number Policy Day Covered Member ID Day Member ID Guarantor Name 06/24/2024 1 [employer] (MEDICARE REPLACEMENT/ADVANTAGE - HMO) [id number] Milli Monroy [id number] Milli Monroy Notes Date Note Type Note Provider Name and Address Orga nization Details Recorded Time 06/10/2024 text/html MH Standard HPI - HISTORICReported by PatientPreventative ScreeningsFor colorectal cancer (all patients, 45-75), patient reportsresults reviewed and documentedandcolonoscopy (every 10 years) result date (mm/dd/yyyy): 07/25/2020. For breast cancer (females, 52-74), patient reportsmammogram (due every 2 years) result date (mm/dd/yyyy): 05/20/2020.CKD ManagementFor statin, patient reportsnot prescribed due to: allergy/intolerance. For sglt2 inhibitors, patient reportsnot prescribed, not a candidate. For a1c (within 12 months), patient iwnfexfs4p - a1c recently completed,date (mm/dd/yyyy): 03/25/2024, andresult: 5.2 (mg/dl). For nsaids, patient reportsnot taking. For oral diabetes medication, patient reportstaking all oral diabetic medications as prescribed. For [employer] pharmacy documents, patient reportscomprehensive medication review (cmr) reviewed.ROS as noted in the HPI Patient seen today for telehealth assessment. Consent for telemedicine was obtained from the patient/ responsible republican. Visit was done via secure, interactive, audiovisual communication that permits real-time communication between the patient and the provider, through a HIPAA compliant telehealth platform, [employer]. Patient located at Home in City[place]State : [place] located at Home Office in City/ State: [place] Patient???s identity was confirmed with Driving License/ Other mode of identity. [employer] RN present in patient's home and took patient's vital signs: Yes Reasonable efforts have been made to maintain usual and customary patient confidentiality. Reason for telemedicine visit: provider availability The HPI consists of patient reported history and the provider's clinical interpretation. 06/10/24 Pleasant 69 yo female seen today for follow up of ESRD on ICHD, HTN, DM2. She had her CVC removed 3 weeks ago and is successfully dialyzing through AVF with no issues reported. Following with vascular Dr. Kwabena UREÑA. She is not interested in home HD at this time, discussed transplant. [facility] but is hesitant to pursue transplant because she states she has GIside effects from many medications and worries she will not be able to tolerate anti-rejection meds. She plans to attend a transplant education class. CLINICAL SUMMARY Milli Monroy is a 69 y/o Female with chronic kidney disease. [facility], indicating ESKD and currently receiving dialysis. [facility] by a health care sanitary technician. Medications were last reviewed by a pharmacist on May 10, 2024. Pharmacist recommends no changes. [facility] social workers are working with the patient to resolve the following concerns: Food or Basic Needs Shortage, Financial. LABS eGFR 10/31/2023 (11 mL/min/1.73) 08/18/2023 (13 mL/min/1.73) Creatinine 03/17/2024 (4.45mg/dL) 10/31/2023 (4.16 mg/dL) 08/18/2023 (3.52 mg/dL) Potassium 03/17/2024 (4.4 mmol/L) 10/31/2023 (4.1 mmol/L) 08/18/2023 (4.2 mmol/L) Bicarbonate (CO2) 03/17/2024 (21 mmol/L) 10/31/2023 (20 mmol/L) Albumin (Serum) No recent Vitamin D3 (25-OH) No recent Parathyroid Hormone (PTH), Intact No recent Albumin/Creatinine Ratio, Urine (uACR) No recent Hemoglobin A1c (A1c) 03/25/2024 (5.2 %) 03/01/2024 (5.0 %) Glucose 10/31/2023 (134 mg/dL) LDL No recent Triglycerides No recent White Blood Cell (WBC) Count No recent Hemoglobin No recent Iron No recent Ferritin No recent Total Iron Binding Capacity (TIBC) No recent CLINICAL HISTORY Was the patient hospitalized in the last 30 days? No [employer] CURRENT PROGRAM Please select the appropriate [employer] Program for this patient ECO - Dialysis Is patient in a Palliative Care Program? No, Patient is not enrolled in a Palliative Care Program [employer] Patient's Primary Language Korean Residence Status Owned or Rented Private Residence Are you currently employed? No MEDICATION Medication Review Completed Yes Is the patient taking all their prescription medications as prescribed? Yes Do you need help with any of your medications? No Do you have enough medication to get you through the next 30 days? Yes PATIENT REPORTED HEALTH CONDITIONS Does the patient have a history of kidney transplant? No Current Access Type AV Fistula Are there any concerns about your dialysis access? no Dialysis Modality ICHD Dialysis Days Thursday;;Thursday First Dialysis Date 2023-12-25 00:00:00 First D ialysis Setting IP Hospital-Planned First Use Dialysis Access Type CVC Kidney Transplant List Status Not Screened Kidney Transplant Notes patient interested Does patient have functioning blood pressure cuff? Yes Does the patient have a functioning glucometer? Yes, Standard Recording Glucose on Log No SOCIAL HISTORY Does the patient require any assistance from a device/equipment or person, with any of the follwing ADLs: Walking, Transferring, Feeding, Bathing, Grooming, Dressing, Toileting, Continence No Assistance Walking: Independent Assistance Transferring Independent Assistance Feeding Independent Assistance Bathing Independent Assistance Grooming Independent Assistance GettingDressed Independent Assistance Toileting Independent Incontinence No Incontinence Does the patient have any Durable Medical Equipment in the home to assist with Activities of Daily Living? NoHas the Patient had any falls in the last 3 months? No Does the Patient worry about falling or feel unsteady when walking? No Are there any concerns around the patient's cognitive status? No Are you worried or concerned that in the next two months you may not have stable housing that you own,rent, or stay in as part of a household? No Does your home have any problems that could make you sick or unsafe? (Examples: Pests, mold, smoke detectors not working, no heat, etc.) No In the past6 months, has anyone threatened to turn off your utilities? (Example: heat, electric, gas, water) No In the past 2 months, did you or others you live with eat smaller meals or skip meals because you didn't have money for food? No Do you have trouble finding or paying for a ride? No Have you ever had to make the choice of buying your medication versus a basic necessity such as food? No Within the past 6 months, does the patient report anyone (including family or friends) causing physicalharm, insulting or talking down to them, threatening them, screamed or cursed at them, or taken advantage of them financially? No Describe Patient's exercise level Little to No Exercise (Sedentary) What are the barriers that prevent the patient from being more physically active? Fatigue/lack of energy;Lack of motivation In a normal week, how many days does the patient consume alcohol? None What is the patient's current smoking status (tobacco or legal use of marijuana)? Never smoker In the past year have you used any medications that were not prescribed for you, or which you took more of than you were supposed to take? No What Matters Most: What is most important to the patientin regards to their personal health goals, and individual health outcome? staying alive Does the patient have a state advance directive in place? No Is the patient open to advance care planning discussion? Yes Does the patient have difficulty hearing? No Does the patient have difficulty seeing? Yes Vision/Hearing Impairment Additional Details wears glasses Adequacy of Caregiver Support Member independent PHQ 2-9 PHQ 2-9 Completed: Yes Little interest or pleasure in doing things Several days Feelingdown, depressed, or hopeless Not at all Total Score 1 Score Interpretation None-Minimal VITALS Height (FT-IN) 06/10/2024 (4 ft 10 in) Weight (LBS) 06/10/2024 (116.0 lbs) Body Mass Index (BMI) 06/10/2024 (24.2) Blood Pressure (Systolic/Diastolic) 06/10/2024 (141/61) Pain Scale Assessment (1-10) No recent O2 Sat % 06/10/2024 (99.0 %) Heart Rate 06/10/2024 (66.0) Respiratory Rate 06/10/2024 (14.0) Temperature (Fahrenheit) No recent Júnior Dow MD [address], [place], [address], [facility] [employer]06/17/2024 07:50:25 OBGyn Episode No OBEpisode recorded.
--- OUTSIDE RECORDS SUMMARY | 2025-01-26 16:23 | XMS_ITS | Clinical Summary ---
Author Organization [facility] Address [address] [place] [address] Care Team Providers Care Tornado Chaser Name Role Phone Unavailable Primary Care Provider Unavailabl e Encounters DateTypeDepartmentCare ZlueFxxztwzaesf21/09/2025Telephone [facility] Transplant [address] [place] [address] Kanchan Davies MA from Last 3 Months Social History Tobacco UseTypesPacks/DayYears UsedDateSmoking Tobacco: Never AssessedUT Safety & EnvironmentAnswerDate RecordedFear of Current or Ex-PartnerNot on file 04/02/2023Emotionally AbusedNot on file04/02/2023hysically AbusedNot on file 04/02/2023Sexually AbusedNot on file04/02/2023hysically or Sexually AbusedNot on file04/02/2023CommentsUnknownSex and Gender InformationValueDate RecordedSex Assigned at BirthNot on fileLegal VfyCmhgah36/29/2022 10:59 PM EDT Gender IdentityNot on fileSexual OrientationNot on file Plan of Treatment Health MaintenanceDue DateLast DoneCommentsCT Iocctlphaent43/15/1955Diabetes: Hemoglobin A1C1954FIT-DNA1954FIT1954Medicare Annual Wellness (AWV)1955 4174Vedpprnrgcmlo35/15/1955Diabetes: Retinopathy Lcmzymrek20/15/1965 Depression Boflzlgbg19/15/1967Pneumococcal Vaccine: 50+ Years (1 of 2 - PCV) 1973Zoster Vaccines (1 of 2)2004FOBT05/01/Fall Risk Vxxbercvl83/15/7242Twplsjvqb96/12/202304/OVID-19 Vaccine (1 - 2024- season)2024Influenza Vaccine (#1)2024dult Phbdszp8301/02/2025 01/02/20154225Zpadidodppo13/17/203106/olorectal Cancer Mklkijrie90/17/2031 HIB VaccinesAged OutNo longer eligible based on patient's age to complete this topicHPV VaccinesAged OutNo longer eligible based on patient's age to complete this topicIPV VaccinesAged OutNo longer eligible based on patient's age to complete this topicMeningococcal B VaccineAged OutNo longer eligible based on patient's age to complete this topicMeningococcal VaccineAged OutNo longer eligible based on patient's age to complete this topicRotavirus VaccinesAged Out No longer eligible based on patient's age to complete this topic Insurance
--- OUTSIDE RECORDS SUMMARY | 2025-01-26 16:23 | XMS_ITS | Patient Health Record ---
Author Organization [facility] in [place] Address [address] [place] [address] Care Team Providers Care Manager Utilization Management Name Role Phone Agustin Licona Primary Care Provider [phone] Allergies Allergen (clinical drug ingredient) Drug/Non Drug Allergy documented on EMR Reaction Allergy Type Onset Date Status Substance with sulfonamide s tructure and antibacterial mechanism of action (substance) Sulfa Antibiotics rash Drug Allergy ActivehydralazineHydralazinenausea and vomitingDrug AllergyActive Results Component Value Reference Range Notes HEMOGLOBIN A1C - IN OFFICE Reviewed date:03/25/2024 08:31:42 AM Interpretation:5.2 Performing Lab: Notes/Report: 5.2 HEMOGLOBIN A1C - IN OFFICE 5.2 4.4 - 6.4 Reason For Referral Reason Evaluate and Treat financial assistance, medicaid ramo pending, transportation Diagnosis 1 Chronic kidney disea se, stage 4 (severe) (N18.4) Referral Organization [facility] Referring Provider First Name Agustin Referring Provider Last Name Monae Referring Provider Speciality Family Med icine Referred Provider Social Work, [facility] QPD Referred Provider Specialty Social Work Services Referral Priority Routine Medications Medication SIG (Take, Route, Frequency, Duration) Notes Start Date End Date Status Cinacalcet HCl 30 MG 3 tablets Orally daily unsure on dose ActivehydrALAZINE HCl 50 MG1 tablet with food Orally Twice a dayActiveCalcitriol 0.25 MCG3 capsules Orally dailyActivePioglitazone HCl 15 MGTAKE 1 TABLET BY MOUTH DAILYActiveNIFEdipine ER 60 MG1 tablet on an empty stomach Orally bid 10/01/2022ctiveOmeprazole 40 MGTAKE 1 CAPSULE BY MOUTH DAILY 30 MINUTES BEFORE BREAKFAST; Duration: 90ActiveAuryxia 1 GM 210 MG(Fe)3 tablets Orally dailyActive glipiZIDE 5 MG1 tablet 30 minutes before breakfast Orally Once a dayActive Social History Tobacco Use: Social History Observation Description Date Details (start date - stop date) Never Smoker NA - NA Tobacco Use/Smoking Question Answer Notes Patient is a nonsmoker Alcohol Screen (Audit-C) Question Answer Notes Did you have a drink containing alcohol in the p ast year? No Uvqwvm6PwjufornyuxflwJckdhjje Problems Problem Type SNOMED Code ICD Code Onset Dates Problem Status W/U Status Risk Notes Problem Essential hypertension (50690421 ) Essential (primary) hypertension (I10) ActiveconfirmedProblemType II diabetes mellitus without complication (054318143) Type 2 diabetes mellitus without complications (E11.9)ActiveconfirmedProblem Gastro-esophageal reflux disease without esophagitis (611289265)Gastro- esophageal reflux disease without esophagitis (K21.9)ActiveconfirmedProblemAge- related osteoporosis (997805912)Age-related osteoporosis without current pathological fracture (M81.0)ActiveconfirmedProblemAnemia in chronic kidney disease (396532391)Anemia in chronic kidney disease (D63.1)Activeconfirmed ProblemNon-toxic multinodular goiter (45436350)Nontoxic multinodular goiter (E04.2)ActiveconfirmedProblemDiabetic renal disease (357826298)Type 2 diabetes mellitus with diabetic chronic kidney disease (E11.22)ActiveconfirmedProblem Diabetic renal disease (029991383)Type 2 diabetes mellitus with other diabetic kidney complication (E11.29)ActiveconfirmedProblemHyperglycemia due to type 2 diabetes mellitus (618722904824126)Type 2 diabetes mellitus with hyperglycemia (E11.65)ActiveconfirmedProblemVitamin D deficiency (97187299)Vitamin D deficiency, unspecified (E55.9)ActiveconfirmedProblemOverweight (551346262) Overweight (E66.3)ActiveconfirmedProblemHypercalcemia (38609031)Hypercalcemia (E83.52)ActiveconfirmedProblemAllergic rhinitis (25782459)Other allergic rhinitis (J30.89)ActiveconfirmedProblemDegeneration of cervical intervertebral disc (74574610)Other cervical disc degeneration, unspecified cervical region (M50.30)ActiveconfirmedProblemChronic kidney disease stage 4 (963759720)Chronic kidney disease, stage 4 (severe) (N18.4)ActiveconfirmedProblemChronic kidney disease stage 5 (819703423)Chronic kidney disease, stage 5 (N18.5)Active confirmedProblemEnd stage renal disease (60485116)End stage renal disease (N18.6)ActiveconfirmedProblemSecondary hyperparathyroidism of renal origin (64707710)Secondary hyperparathyroidism of renal origin (N25.81)Activeconfirmed ProblemOveractive bladder (881441568)Overactive bladder (N32.81)Activeconfirmed ProblemDysphagia (58137301)Dysphagia, unspecified (R13.10)ActiveconfirmedProblem Dependence on renal dialysis (028298292)Dependence on renal dialysis (Z99.2) ActiveconfirmedProblemPure hypercholesterolemia (950832925)Pure hypercholesterolemia, unspecified (E78.00)ActiveconfirmedProblemIrritable bowel syndrome (18173156)Mixed irritable bowel syndrome (K58.2)ActiveconfirmedProblem Imaging result abnormal (183486598)Abnormal findings on diagnostic imaging of other specified body structures (R93.89)Activeconfirmed Vital Signs Heart Rate 70 /min 12/21/2024 Respiratory Rate16 /min12/21/2024lood pressure ioqachxtq09 mm Hg06/13/2024 Wbdjzwtq01 %12/21/20246354Ahrjcu31 in12/21/2024lood pressure oqyxnyed719 mm Hg 06/13/20247476Qcqmdy584.3 lbs102/21/2024BMI25.14 kg/m212/21/2024 Encounters Encounter Location Date [facility] [address] [place] [address] 11/30/2024 gAustin Licona [address] [address]/Daniel [facility] [place] [address]/09/2024[facility] [place] [address]/05/2024[facility] [place] [address] [place] [address]/11/2024[facility] [place] [address] [place] [address]/[facility] [address] [place] [facility] [place] [address]/07/2024 [facility] [address] [place] [address]/[facility] [place] [address] [place] [address]/[facility] [place] [address] [place] [address]/[facility] [place] [address] [place] [address]/02/2024[facility] [place] [address] [place] [address]/[facility] [place] [address] [place] [address]/07/2024[facility] [place] [address] [place] [address]/09/2024[facility] [place] [address] [place] [address]/12/2024[facility] [place] [address] [place] [address]/03/2024[facility] [place] [address] [place] [address]/10/2024[facility] [place] [address] [place] [address]/[facility] [place] [address] [place] [address]/[facility] [address] [place] [facility] [place] [address]/05/2024[facility] [address] [place] [address]/07/2024Dani [address] [place] [address]/12/2024[facility] [address] [place] [address]/[facility] [address] [place] [address]/02/2024[address] [place] [address]/06/2024Dani Licona Encounter for Medicare annual wellness exam Z00.00 ; Body mass index [BMI] 24.0- 24.9, adult Z68.24 ; Gastro-esophageal reflux disease without esophagitis K21.9 ; Essential (primary) hypertension I10 ; Age-related osteoporosis without current pathological fracture M81.0 ; Vitamin D deficiency, unspecified E55.9 ; Anemia in chronic kidney disease D63.1 ; Secondary hyperparathyroidism of renal origin N25.81 ; Pure hypercholesterolemia, unspecified E78.00 ; Type 2 diabetes mellitus with diabetic chronic kidney disease E11.22 ; Chronic kidney disease, stage 5 N18.5 ; Dependence on renal dialysis Z99.2 and Noninfective gastroenteritis and colitis, unspecified K52.9[address] [place] [address]/[facility]UC[facility] HospitalType 2 diabetes mellitus with diabetic chronic kidney disease E11.22 ; Body mass index [BMI] 23.0-23.9, adult Z68.23 and Acute upper respiratory infection, unspecified J06.9[address] [place] [address]/01/2025[facility] Vitamin D deficiency, unspecified E55.9 ; Essential (primary) hypertension I10 ; Type 2 diabetes mellitus with diabetic chronic kidney disease E11.22 ; Encounter for screening mammogram for malignantneoplasm of breast Z12.31 ; Overweight E66.3 ; Body mass index [BMI] 25.0-25.9, adult Z68.25 ; Anemia in chronic kidney disease D63.1 ; End stage renal disease N18.6 and Dependence on renal dialysis Z99.2 Assessments Encounter Date Diagnosis (ICD Code) Assessment Notes Treatment Notes Treatment Clinical Notes Section Notes 06/13/2024 Encounter for Medicare annual we llness exam (ICD-10 - Z00.00) rec vaccines - flu/dtap/pn/shingrix/rsv - pt refuses rec dexa q2 years - refuses rec katherine yearly - refuses rec labs yearly rtc 1 year diet/exercise eye and dental exams yearly colonoscopy q10 years - UTD 06/13/2024ody mass index [BMI] 24.0-24.9, adult (ICD-10 - Z68.24)12/21/2024 Vitamin D deficiency, unspecified (ICD-10 - E55.9)lab12/21/2024Essential (primary) hypertension (ICD-10 - I10) continue med diet/exercise bp check daily controlled goal <130/80 monitor bmp and urine microalbumin yearly 02/24/2024Type 2 diabetes mellitus with diabetic chronic kidney disease (ICD-10 - E11.22) a1c today controlled bs check daily diet/exercise eye exam yearly - dilated foot exam daily 02/24/2024ody mass index [BMI] 23.0-23.9, adult (ICD-10 - Z68.23)02/24/2024 Acute upper respiratory infection, unspecified (ICD-10 - J06.9) rec claritin/flonase rtc prn 12/21/2024Type 2 diabetes mellitus with diabetic chronic kidney disease (ICD-10 - E11.22) monitor BS monitor a1c diet/exercise eye exam yearly - dilated foot exam daily 06/13/2024Gastro-esophageal reflux disease without esophagitis (ICD-10 - K21.9) diet stable 06/13/2024Essential (primary) hypertension (ICD-10 - I10) diet/exercise bp check daily goal <130/80 monitor bmp 12/21/2024Encounter for screening mammogram for malignant neoplasm of breast (ICD-10 - Z12.31)12/21/2024Overweight (ICD-10 - E66.3)diet/cogsnkvo55/05/2025 Age-related osteoporosis without current pathological fracture (ICD-10 - M81.0) rec prolia/reclast diet/exercise monitor dexa q2 years 06/13/2024Vitamin D deficiency, unspecified (ICD-10 - E55.9)monitor lab and adjust tx based on this12/21/2024ody mass index [BMI] 25.0-25.9, adult (ICD-10 - Z68.25)12/21/2024nemia in chronic kidney disease (ICD-10 - D63.1) stable monitor 06/13/2024nemia in chronic kidney disease (ICD-10 - D63.1) monitor cbc stable 06/13/2024Secondary hyperparathyroidism of renal origin (ICD-10 - N25.81) monitor cmp and PTH f/u neph as directed 12/21/2024End stage renal disease (ICD-10 - N18.6) f/u neph as directed continue meds HD 3 times a week 12/21/2024Dependence on renal dialysis (ICD-10 - Z99.2)see above06/13/2024Pure hypercholesterolemia, unspecified (ICD-10 - E78.00) labs yearly diet/exercise LDL goal <70 06/13/2024Type 2 diabetes mellitus with diabetic chronic kidney disease (ICD-10 - E11.22) bs control monitor a1c diet/exercise eye exam yearly - dilated foot exam daily monitor urine microalb yearly 06/13/2024hronic kidney disease, stage 5 (ICD-10 - N18.5)f/u neph as directed for HD 3 times a week and for labs06/13/2024Dependence on renal dialysis (ICD-10 - Z99.2)f/u neph as /05/2025Noninfective gastroenteritis and colitis, unspecified (ICD-10 - K52.9) diet rec fiber daily otc ?CT abd/pelvis Plan Of Treatment Pending Test Test Name Order Date LIPID PANEL (CHOL/TRIG/HDL/LDL) 12/22/19 25 VITAMIN D, 25 LEVEL (TOTAL) 12/21/2024 Thyroid biopsy 08/17/2023 Echocardiogram 2D M Mode w/ Doppler (noe sure RVSP) 11/05/2022 MAMM SCREEN BILAT DORA 3D GLOBAL* 2024 CMP (COMP MET DAN) w/eGFR CKD-EPI 2024 MICROALBUMIN w CREAT RATIO 12/21/2024 Next Appt Details Provider Name:Agustin neves, 06/14/2025 02:00:00 PM, [address] [facility], [place], [address], Insurance Providers Payer Name Payer Address Payer Phone Subscriber Number Group Number Insured Name Patient Relationship to Insured Coverage Start Date Coverage End Date [employer] [address] [place], [place] [phone] [id number] Maycol Monroy - patient is the [id number] 2024[place] [id number], OfeliaSelf - patient is the [id number] 2022 Medical (General) History Medical History History ICD Code glaucoma heartburn/acid refluxhypertensioncolon polypsDM with microalbuminuriaanemia of CKD 5CKD-5cad/MIhypercalcemiaC DDDosteoporosisthyroid nodulesvit D defSurgical History Surgery Date(Month/Year) L UE AVF - 2023 hyst without bsocholeb/l cataractscolonoscopy ~2020 +polyps - repeat at age 71
--- OUTSIDE RECORDS SUMMARY | 2025-01-26 16:23 | XMS_ITS | Encounter Summary ---
Author Organization [facility] Address [address] [place] [address] Care Team Providers Care Certified Nurse Aide Name Role Phone Unavailable Primary Care Provider Unavailabl e Encounter Details DateTypeDepartmentCare Team (Latest Contact Info)Rspowroraey17/09/2025Telephone [facility] Transplant [address] [place] [address] Kanchan Davies MA Social History Tobacco UseTypesPacks/DayYears UsedDateSmoking Tobacco: Never AssessedUT Safety & EnvironmentAnswerDate RecordedFear of Current or Ex-PartnerNot on file 04/02/2023Emotionally AbusedNot on file04/02/2023hysically AbusedNot on file 04/02/2023Sexually AbusedNot on file04/02/2023hysically or Sexually AbusedNot on file04/02/2023CommentsUnknownSex and Gender InformationValueDate RecordedSex Assigned at BirthNot on fileLegal WzyFdibfw84/29/2022 10:59 PM EDT Gender IdentityNot on fileSexual OrientationNot on filedocumented as of this encounter Plan of Treatment Not on file documented as of this encounter Visit Diagnoses Not on filedocumented in this encounter
--- OUTSIDE RECORDS SUMMARY | 2025-01-26 16:23 | XMS_ITS | Clinical Summary ---
Author Organization [facility] Healthcare Address [address] [facility] [place] [address] Care Team Providers Care Embossing Toolsetter Name Role Phone Joey Webster MD Primary Care Provider [phone] Allergies Active AllergyReactionsCriticalityNoted DateCommentsSulfa AntibioticsHives 11/04/2022 Medications MedicationSigDispense QuantityRefillsLast FilledStart DateEnd DateStatus SITagliptin (Januvia) 25 MG tablet Take 25 mg by mouth in the morning.Active calcitriol (Rocaltrol) 0.25 MCG capsule Take 0.25 mcg by mouth in the morning.Active amLODIPine (Norvasc) 10 MG tablet Take 10 mg by mouth in the morning.12/17/2021ctive glipiZIDE (Glucotrol) 5 MG tablet Take 5 mg by mouth in the morning.09/17/2022ctive omeprazole (PriLOSEC) [address] capsule Take 40 mg by mouth in the morning.09/17/2022ctive timolol (Timoptic) 0.25 % ophthalmic solution 08/24/2022ctive predniSONE (Deltasone) 10 MG tablet Indications:Plantar fasciitis of left foot1 tablet twice daily x 7 days; followed by 1 tablet daily as directed until complete 21 tablet 02/23/2023ctive Additional Information Patient not taking.Reported on 03/10/2023 Immunizations ImmunizationAdministration DatesNext OlcTack83/24/2015 Family History Medical HistoryRelationNameCommentsHeart diseaseBrotherDiabetesFatherDiabetes OfdfnhHkmptpgjJifmqbfQzznplMcdmkcfortbkewxdKfxrsaphknmeQyilhcs7HjqccqziNkmu StatusCommentsBrotherFatherMotherSiblingSister Social History Tobacco UseTypesPacks/DayYears UsedDateSmoking Tobacco: NeverSmokeless Tobacco: NeverAlcohol UseStandard Drinks/WeekCommentsNot Currently0 (1 standard drink = 0.6 oz pure alcohol)CommentsUnknownSex and Gender InformationValueDate RecordedSex Assigned at BirthNot on fileLegal BnwMiyivg90/15/2023 7:14 PM EDT Gender IdentityNot on fileSexual OrientationNot on file Last Filed Vital Signs Vital SignReadingTime TakenCommentsBlood Pressure--Pulse--Temperature-- Respiratory Rate--Oxygen Saturation--Inhaled Oxygen Concentration--Rajbhp54.2 kg (115 lb)03/10/2023 2:14 PM ZPYEteife877.3 cm (4' 10 )03/10/2023 2:14 PM ESTBody Mass Index24.04003/10/2023 2:14 PM EST Plan of Treatment Not on file Insurance * Guarantor: Milli MonroyAccount TypeRelation to PatientDate of BirthPhone Billing AddressPersonal/HikoqeHvoj75/15/1956 [facility] [address] Care Teams Team MemberRelationshipSpecialtyStart DateEnd Date Joey Webster MD [address] [place] [address] [facility]11/03/22
--- OUTSIDE RECORDS SUMMARY | 2025-01-26 16:23 | XMS_ITS | Clinical Summary ---
Author Organization [employer] Address [id number] [place] [address] Care Team Providers Care Soft Drink Powder Mixer Name Role Phone Agustin Licona Primary Care Provider + [phone] Allergies Active AllergyReactionsCriticalityNoted DateCommentsAtorvastatinGI Disturbance 02/12/2017Fluticasone PropionateOther (See Comments)02/12/2017 Chapped lips Sulfa (Sulfonamide Antibiotics)LxeikHjpx77/10/1552SojaieEsxcTwn06/06/2014 Medications MedicationSigDispense QuantityRefillsLast FilledStart DateEnd DateStatus timolol (TIMOPTIC) 0.25 % ophthalmic solution Administer 1 drop to both eyes in the morning.06/21/2020ctive omeprazole (PriLOSEC) 40 mg capsule take 1 capsule by mouth once daily 30 capsule ctive Additional Information Patient taking differently: 40 mg oral Every morning before breakfast, Reported on 09/26/2024 NIFEdipine XL (PROCARDIA XL) 60 mg 24 hr tablet Take 1 tablet (60 mg total) by mouth 2 (two) times daily at 0800 and 1500. 180 tablet ctive glipiZIDE (GLUCOTROL) 10 mg tablet Take 0.5 tablets (5 mg total) by mouth in the evening.Active pioglitazone (ACTOS) 15 mg tablet Indications:type 2 diabetes mellitusTake 1 tablet (15 mg total) by mouth in the morning. Indications: type 2 diabetes mellitus.11/02/2023ctive hydrALAZINE (APRESOLINE) 50 mg tablet Take 1 tablet (50 mg total) by mouth in the morning and 1 tablet (50 mg total) before bedtime. 270 tablet 309/26/2024Active cinacalcet (SENSIPAR) 30 mg tablet Take 1 tablet (30 mg total) by mouth in the morning.Active ferric citrate (AURYXIA ORAL) Take by mouth in the morning and at noon and before bedtime.Active acetaminophen (TYLENOL EXTRA STRENGTH) 500 mg tablet Take 1 tablet (500 mg total) by mouth every 6 (six) hours as needed for pain. 30 tablet 5Active Active Problems ProblemNoted DateDiagnosed DateSteal syndrome of dialysis vascular access 05/06/2024End stage renal abhzybc4501/14/2024 Assessment & Plan (01/14/2024 3:07 PM EST): Left upper extremity dialysis ask access creation AV fistula possible AV graft however likely AV graft Given her small size veins in the vein mapping. Encounters DateTypeDepartmentCare FyrjKodjplxsghw11/11/2025Refill N [facility] [address] [place] [address] Madeleine Clarke, MRI ASSISTANT-PROCEDURES NURSE from Last 3 Months Family History Medical HistoryRelationNameCommentsDiabetesBrother 2HypertensionBrother 2 DiabetesFatherDiabetesMotherDiabetesSister 2HypertensionSister 2Esophageal cancerSister 3Anesthesia problemsNeg HxBreast cancerNeg HxColon cancerNeg Hx Ovarian cancerNeg HxUterine cancerNeg HxRelationNameStatusCommentsBrother 1Alive Brother 2DeceasedDaughterAliveFatherDeceasedMotherDeceasedSister 1AliveSister 2 DeceasedSister 3DeceasedSonAlive Social History Tobacco UseTypesPacks/DayYears UsedDateSmoking Tobacco: NeverPassive Smoke Exposure: NeverSmokeless Tobacco: Never Tobacco Cessation:Counseling Given: Not Answered Alcohol UseStandard Drinks/WeekCommentsNo0 (1 standard drink = 0.6 oz pure alcohol)AUDIT-CAnswerDate RecordedFrequency of Alcohol ConsumptionNever 1Average Number of DrinksNot on file05/21/2020Frequency of Binge DrinkingNot on file05/21/2020hildcareAnswerDate RecordedChildcareUnknown 07/12/2018EmploymentAnswerDate AoxyhvqiMctenhkmdrTpsqjul41/03/2019Hunger ScreeningAnswerDate RecordedWithin the past 12 months we worried whether our food would run out before we got money to buy more.Never True05/12/2024Within the past 12 months the food we bought just didn't last and we didn't have money to get more.Never True05/12/2024Purpose - LifeAnswerDate RecordedPurpose and direction in myroDcstcmk07/11/2021CommentsNoSex and Gender Information ValueDate RecordedSex Assigned at BirthNot on fileLegal WdgZuyvfv62/06/2015 11:23 AM EDTGender IdentityNot on fileSexual OrientationNot on file Last Filed Vital Signs Vital SignReadingTime TakenCommentsBlood Bajvdtzu520/5208 1:15 PM EDT Nxawo386009/26/2024 1:15 PM WRZDozdhzhcmdd70 ??C (96.8 ??F)05/13/2024 4:55 PM EDT Respiratory Yjrp844409/26/2024 1:15 PM EDTOxygen Ekfwdzqmhp40%09/26/2024 1:15 PM EDTInhaled Oxygen Concentration--Culjnx16.4 kg (120 lb)09/26/2024 12:03 PM EDT Bxrkqd660.3 cm (4' 10 )09/26/2024 12:03 PM EDTBody Mass Index25.0809/26/2024 12:03 PM EDT Plan of Treatment DateTypeDepartmentCare Team (Latest Contact Info)Kouusorypsn41/05/2026 1:15 PM ESTAppointment [facility] [address] [place] [address] Health MaintenanceDue DateLast DoneCommentsDepression Hejhtcesy01/15/1967Adult BMI Follow Up Plan1972RSV ( or age 60+ yrs) (1 - Risk 50-74 years 1-dose series)2004Zoster (Shingles) Vaccine (1 of 2)2004Fall Risk Jqnqfndtc61/15/2020Influenza Aarxhoh1310/10/2024DTaP,Tdap and Td Vaccines (2 - Td or Tdap)5103/04/20142395Perucffwqeo56/17/202606/, 07/26/2020dult BMI Ymbkluein76Tobacco Hpugxuoos09 Medical Devices ImplantedTypeAreaManufacturerDevice IdentifierShelf Expiration DateModel / Serial / LotLens Iol [id number].220 [employer] Rpl [id number] - [id number] - [id number] Implanted:Qty: 1 on 10/22/2023 [facility] [employer]06/02/[id number].220 / [id number] / NA Procedures Procedure NamePriorityDate/TimeAssociated DiagnosisCommentsPROVATION COLONOSCOPY Fxxswna3307/26/2020 8:50 AM EDT from Last 3 Months or Most Recently Relevant to Health Maintenance Results * Colonoscopy Report (07/26/2020 8:50 AM EDT)Specimen (Source)Anatomical Location / LateralityCollection Method / VolumeCollection TimeReceived Time Narrative SYSTEMGENERATED, DOCUMENTATION - 07/26/2020 8:50 AM EDT This order has been auto-finalized for image and report archival in PACs. *For full report details, please reach out to your physician. ??Effective 06/26/20 this image will be visible to you in MyChart.* Authorizing ProviderResult TypeResult StatusMichael E Grillis DOIMG OR IMG ORDERABLESFinal Result from Last 3 Months or Most Recently Relevant to Health Maintenance Insurance * Guarantor: Milli oMnroyAccount TypeRelation to PatientDate of BirthPhone Billing AddressPersonal/PwkzcmHpxs57/15/1956 [facility] [place] [address] Care Teams Team MemberRelationshipSpecialtyStart DateEnd Date Agustin Licona DO [address] [place] [address] PCP - GeneralFamily Medicine05/04/23
--- OUTSIDE RECORDS SUMMARY | 2025-01-26 16:23 | XMS_ITS | Clinical Summary ---
Author Organization [facility] Address [address], [address] [place] [address] Care Team Providers Care Field Broomer Name Role Phone Agustin Licona MD Primary Care Provider + [phone] Allergies Active AllergyReactionsCriticalityNoted DateCommentsAtorvastatinNausea Only 02/12/2017 Other reaction(s): GI Disturbance Elemental LizkshOiqqCff22/06/2014Fluticasone PropionateOther (See Comments) 02/12/2017 Chapped lips Sulfa Mdriekfolfz63/26/2016 Medications MedicationSigDispense QuantityRefillsLast FilledStart DateEnd DateStatus timolol (TIMOPTIC) 0.25 % ophthalmic solution Place 1 drop into both eyes 2 times dsroh89003/31/2013ctive Misc. Devices MISC Indications:DM (diabetes mellitus screen)Test 1 time daily 50 each 11010/11/2015Active Blood Glucose Monitoring Suppl (TRUE METRIX METER) w/Device KIT 1 each by Does not apply route daily 1 kit 02/16/2019Active ferrous sulfate (FE TABS 325) 325 (65 Fe) MG EC tablet Indications:Other iron deficiency anemiatake 1 tablet by mouth twice a day 60 tablet ctive Additional Information Patient not taking.Reported on 01/29/2022 Lancets Super Thin 28G MISC Indications:Type 2 diabetes mellitus with diabetic polyneuropathy, without long- term current use of insulin (HCC)1 each by Does not apply route daily 100 each 2Active blood glucose test strips (ASCENSIA AUTODISC ;ONE TOUCH ULTRA TEST ) strip Indications:Type 2 diabetes mellitus with diabetic polyneuropathy, without long- term current use of insulin (HCC)1 each by In Vitro route daily 100 each ctive sodium zirconium cyclosilicate (LOKELMA) 10 g PACK oral suspension Take 10 g by mouth every other day 30 packet 6009/24/2021ctive Additional Information Patient not taking.Reported on 01/29/2022 sodium polystyrene (SPS) 15 GM/60ML suspension Take 120 mLs by mouth once for 1 dose 120 mL 09/24/2021ctive Additional Information Patient not taking.Reported on 01/29/2022 sodium bicarbonate 650 MG tablet Daily 30 tablet ctive Additional Information Patient not taking.Reported on 01/29/2022 amLODIPine (NORVASC) 10 MG tablet Indications:Essential hypertensiontake 1 tablet by mouth once daily 30 tablet ctive SITagliptin (JANUVIA) 25 MG tablet Take 1 tablet by mouth daily 30 tablet ctive cloNIDine (CATAPRES) 0.1 MG tablet Take 1 tablet by mouth 2 times daily 60 tablet ctive omeprazole (PRILOSEC) 40 MG delayed release capsule take 1 capsule by mouth once daily 30 capsule ctive glipiZIDE (GLUCOTROL) 5 MG tablet take 1 tablet by mouth once daily 30 tablet ctive vitamin D (ERGOCALCIFEROL) 1.25 MG (97430 UT) CAPS capsule take 1 capsule by mouth every week 24 capsule 09/19/2022ctive Active Problems Patient Care Coordination No te Formatting of this note migh t be different from the original. Patient is now being followed by [facility] - ProblemNoted DateDiagnosed DateCKD (chronic kidney disease), stage IV09/23/2021 Acquired absence of both cervix and vgaxov3411/06/2020Type 2 diabetes mellitus with wmujnyphsehad89/28/2021cute kidney lartwbe3010/19/20200959Cbjcnronl95/23/2021 Aqjlxqkyc21/23/2021OVID-19009/30/2020Iron deficiency vmpmhk5009/01/2018 Uncontrolled type 2 diabetes mellitus with /24/2019Trigger middle finger of right hand09/01/2018Trigger finger of right thumb09/01/2018Chronic kidney disease, stage 2 (mild)04/20/2017Controlled type 2 diabetes mellitus with diabetic nephropathy, without long-term current use of luexkmg1303/18/2017Type 2 diabetes mellitus with diabetic polyneuropathy, without long-term current use of dknitdb4709/07/2015Mixed zabofzxlmokynu55/29/2016Knee pain, acute02/16/2015 HypertensionDiabetes mellitus Immunizations ImmunizationAdministration DatesNext DueTDaP, ADACEL (age 10y-64y), BOOSTRIX (age 10y+), IM, 0.5mL01/02/2015 Social History Tobacco UseTypesPacks/DayYears UsedDateSmoking Tobacco: NeverSmokeless Tobacco: Never Tobacco Cessation:Counseling Given: No Alcohol UseStandard Drinks/WeekCommentsNo0 (1 standard drink = 0.6 oz pure alcohol)Overall Financial Resource Strain (CARDIA)AnswerDate RecordedHow hard is it for you to pay for the very basics like food, housing, medical care, and heating?Not hard at all06/13/2021HQ-2AnswerDate RecordedPHQ-9 Total Score0 01/29/2022Hunger Vital SignAnswerDate RecordedWithin the past 12 months, you worried that your food would run out before you got the money to buymore.Never true06/13/2021Within the past 12 months, the food you bought just didn't last and you didn't have money to get more.Never true06/13/2021RAPARE - TransportationAnswerDate RecordedIn the past 12 months, has lack of transportation kept you from medical appointments or from getting medications?No 02/23/2020In the past 12 months, has lack of transportation kept you from meetings, work, or from getting things needed for daily living?No02/23/2020 CommentsNoSex and Gender InformationValueDate RecordedSex Assigned at BirthNot on fileLegal ElvDvyeqx59/10/2013 6:34 PM ESTGender IdentityNot on file Sexual OrientationNot on file Last Filed Vital Signs Vital SignReadingTime TakenCommentsBlood Rqxdretn686/5309 7:58 PM EDT Zngtr6718 7:58 PM UWODkvoopqbilw02.6 ??C (97.9 ??F)10/24/2022 7:58 PM EDTRespiratory Hxhq554210/24/2022 7:58 PM EDTOxygen Zafkntagrl13%10/24/2022 7:58 PM EDTInhaled Oxygen Concentration--Kcxfds52.7 kg (114 lb)10/24/2022 7:58 PM EDT Bfiubt201.3 cm (4' 10 )10/24/2022 7:58 PM EDTBody Mass Index23.8310/24/2022 7:58 PM EDT Plan of Treatment Health MaintenanceDue DateLast DoneCommentsDepression Ntkofd9605/24/1966 Pneumococcal 50+ years Vaccine (1 of 2 - PCV)1973Fecal-DNA (Cologuard): Average risk05/25/1999Sigmoidoscopy/CT oghuvnqkscnj57/15/2000DEXA (modify frequency per FRAX score)2009Respiratory Syncytial Virus (RSV) or age 60 yrs+ (1 - Risk 60-74 years 1-dose series)2014FIT/FOBT: Average risk /5045Xjzteg92/24/202203/, 02/14/2019, 08/08/2018, Additional history existsDiabetic retinal exam/1Diabetic foot exam/, 10/20/2019Breast cancer gmopmb77/01/2021, 03/13/2017Diabetic Alb to Cr ratio (uACR) test/09/2021, 06/13/2021, 04/30/2016Annual Wellness Visit (Medicare)3A1C test (Diabetic or Prediabetic)/, 09/19/2021, 06/13/2021, Additional history existsGFR test (Diabetes, CKD 3-4, OR last GFR 15-59)/, 10/17/2021, 10/17/2021, Additional history existsFlu vaccine (#1)09/09/2024 COVID-19 Vaccine (1 - season)2024DTaP/Tdap/Td vaccine (2 - Td or Tdap)5103/04/2014Shingles vaccine (1 of 2)02/21/2026Postponed from 2004 (Patient Refused)Eofozwipnel45, 07/26/2020 Colorectal Cancer Tleesz3307/26/2030Hepatitis A vaccineAged OutNo longer eligible based on patient's age to complete this topicHepatitis B vaccineAged OutNo longer eligible based on patient's age to complete this topicHepatitis C screen DiscontinuedHib vaccineAged OutNo longer eligible based on patient's age to complete this topicMeningococcal (ACWY) vaccineAged OutNo longer eligible based on patient's age to complete this topicMeningococcal B vaccineAged OutNo longer eligible based on patient's age to complete this topicPolio vaccineAged OutNo longer eligible based on patient's age to complete this topic Procedures Procedure NamePriorityDate/TimeAssociated DiagnosisCommentsBASIC METABOLIC PANEL Stat Sunquest Label print10/24/2022 8:48 PM EDT POCT GLYCOSYLATED HEMOGLOBIN (HGB A1C)Xdjutra1001/29/2022 10:38 AM EST Type 2 diabetes mellitus with diabetic polyneuropathy, without long-term current use of insulin (HCC) MICROALBUMIN, STBzpdusp90/08/2022 9:50 AM EDT OBUMPLSBRBEDilxuan62/17/2021 DIABETES EYE DYDCVoqxwbk40/16/2021MAM DIGITAL SCREEN W OR WO CAD BILATERAL Fkwcusq9905/21/2020 Encounter for screening mammogram for breast cancer LIPID GAHHHMiraewa64/24/2021 9:40 AM EDT Essential hypertension POCT FECAL IMMUNOCHEMICAL TEST (FIT)Gliduxp7305/01/2016 Encounter for screening fecal occult blood testing from Last 3 Months or Most Recently Relevant to Health Maintenance Results * (ABNORMAL) Basic Metabolic Panel (10/24/2022 8:48 PM EDT)ComponentValueRef RangeTest MethodAnalysis TimePerformed AtPathologist ObcuokhwoJswmts882409 - 144 mmol/L10/24/2022 8:48 PM [facility] LABPotassium 4.43.7 - 5.3 mmol/L10/24/2022 8:48 PM [facility] Zkkwmyks89148 - 107 mmol/L10/24/2022 8:48 PM [facility] IZYUF62796 - 31 mmol/L10/24/2022 8:48 PM [facility] LABAnion Yvl908 - 17 mmol/L10/24/2022 8:48 PM [facility] TPXBgymccq851(H)70 - 99 mg/dL10/24/2022 8:48 PM [facility] FDHLCF18(H)8 - 23 mg/dL10/24/2022 8:48 PM [facility] LABCreatinine3.8(H)0.5 - 0.9 mg/dL10/24/2022 8:48 PM [facility] LABEst, Glom Filt Rate12(L)>60 mL/min/1.64u01510/24/2022 8:48 PM [facility] Comment: ? These results are not intended for use in patients <18 years of age. ? eGFR results are calculated without a race factor using the 2020 CKD-EPI equation. Careful clinical correlation is recommended, particularly when comparing to results calculated using previous equations. The CKD-EPI equation is less accurate in patients with extremes of muscle mass, extra-renal metabolism of creatine, excessive creatine ingestion, or following therapy that affects renal tubular secretion. Gstlvuf66.28.6 - 10.4 mg/dL10/24/2022 8:48 PM [facility] LABSpecimen (Source)Anatomical Location / LateralityCollection Method / VolumeCollection TimeReceived TimeBLOOD SPECIMEN / Wiaystm9010/24/2022 8:48 PM EDT 10/24/2022 8:48 PM EDT Narrative Authorizing ProviderResult TypeResult StatusJeromy R David MDCHEMISTRY ORDERABLESFinal ResultPerforming OrganizationAddressCity/State/ZIP CodePhone Number [facility] [address] [place] [address], [facility] [phone] * (ABNORMAL) POCT glycosylated hemoglobin (Hb A1C) (01/29/2022 10:38 AM EST) ComponentValueRef RangeTest MethodAnalysis TimePerformed AtPathologist SignatureHemoglobin A1C6.8%Specimen (Source)Anatomical Location / Laterality Collection Method / VolumeCollection TimeReceived TimeBLOOD SPECIMEN / Unknown 01/29/2022 10:38 AM EST Narrative Authorizing ProviderResult TypeResult StatusAnant Devine [facility] COUNTYOINT OF CARE TEST ORDERABLESFinal Result * (ABNORMAL) Microalbumin, Ur (10/17/2021 9:50 AM EDT)ComponentValueRef Range Test MethodAnalysis TimePerformed AtPathologist SignatureAlbumin Ajgrj269(H) <21 mg/L10/17/2021 9:50 AM EDTMERCY LABORATORIESCreatinine, Ur47.228.0 - 217.0 mg/dL10/17/2021 9:50 AM EDTMERCY LABORATORIESMicroalb/Blueprint Assembler. Gaelh857(H)<25 mcg/mg creat10/17/2021 9:50 AM EDTMERCY LABORATORIESSpecimen (Source) Anatomical Location / LateralityCollection Method / VolumeCollection Time Received Time10/17/2021 9:50 AM EDT10/17/2021 9:55 AM EDT Narrative Authorizing ProviderResult TypeResult StatusSim SALGADO ORDERABLESFinal ResultPerforming OrganizationAddressCity/State/ZIP CodePhone Number [facility] [address] [place] [address], [facility] [phone] [address], [facility] [phone] * HM COLONOSCOPY (07/26/2020) Narrative Alla Coronel - 07/26/2020 [facility] Patient Name: Milli Monroy ?? Procedure Date No Time: 07/26/2020 ?? CSN : [id number] Date of : 1955 Admit Type: Outpatient Age: 65 Room: [facility] OR Gender: Female Note Status: Finalized Attending??MD: Higinio Membreno DO Procedure: ? Colonoscopy Indications: ? Epigastric abdominal pain Providers: ? Higinio Membreno DO Referring MD: ?Higinio Membreno DO Medicines: ? Propofol per Anesthesia Complications: ? No immediate complications. Procedure: ? After I obtained informed consent, the scope was ? passed under direct vision. Throughout the procedure, ? the patient's blood pressure, pulse, and oxygen ? saturations were monitored continuously. The OLYMPUS ? -[id number] #[id number] ADULT COLONOSCOPE was introduced ? through the anus and advanced to the cecum, identified ? by appendiceal orifice and ileocecal valve. The ? colonoscopy was performed without difficulty. The ? patient tolerated the procedure well. The quality of ? the bowel preparation was adequate to identify polyps. Findings: ? Skin tags were found on perianal exam. ? A 7 mm polyp was found in the recto-sigmoid colon. The polyp was ? semi-pedunculated. The polyp was removed with a hot snare. Resection and ? retrieval were complete. ? Multiple small and large-mouthed diverticula were found in the sigmoid ? colon, descending colon and distal ascending colon. ? The exam was otherwise without abnormality on direct and retroflexion? views. Estimated Blood Loss: ??Estimated blood loss: none. Impression: ?- Perianal skin tags found on perianal exam. ? - One 7 mm polyp at the recto-sigmoid colon, removed ? with a hot snare. Resected and retrieved. ? - Diverticulosis in the sigmoid colon, in the ? descending colon and in the distal ascending colon. ? - The examination was otherwise normal on direct and ? retroflexion views. Recommendation: ?- Discharge patient to home. ? - High fiber diet for the rest of the patient's life. ? - Repeat colonoscopy in 3 years for surveillance based ? on pathology results. ? - Return to my office in 1 week. Procedure Code(s): ? --- Professional --- ? 49456, Colonoscopy, flexible; with removal of ? tumor(s), polyp(s), or other lesion(s) by snare ? technique Diagnosis Code(s): ? --- Professional --- ? K63.5, Polyp of colon ? K64.4, Residual hemorrhoidal skin tags ? R10.13, Epigastric pain ? K57.30, Diverticulosis of large intestine without perforation or abscess ? without bleeding CPT copyright 2019 [employer]. All rights reserved. The codes documented in this report are preliminary and upon director television news review may be revised to meet current compliance requirements. ??DO Higinio Sparks DO 07/26/2020 10:18:03 AM Number of Addenda: 0 Note Initiated On: 07/26/2020 9:58 AM Other Result Text Interface - Cv Results/Orders In 1 - 07/26/2020 10:18 AM EDT [facility] Patient Name: Milli Monroy ?? Procedure Date No Time: 07/26/2020 ?? CSN : [id number] Date of : 1955 Admit Type: Outpatient Age: 65 Room: [place] [address] Gender: Female Note Status: Finalized Attending MD: Higinio Membreno DO Procedure: ? Colonoscopy Indications: ? Epigastric abdominal pain Providers: ? Higinio Membreno DO Referring MD: ?Higinio Membreno DO Medicines: ? Propofol per Anesthesia Complications: ? No immediate complications. Procedure: ? After I obtained informed consent, the scope was ? passed under direct vision. Throughout the procedure, ?the patient's blood pressure, pulse, and oxygen ?saturations were monitored continuously. The OLYMPUS ?-[id number] #[id number] ADULT COLONOSCOPE was introduced ?through the anus and advanced to the cecum, identified ?by appendiceal orifice and ileocecal valve. The ?colonoscopy was performed??without difficulty. The ?patient tolerated the procedure well. The quality of ?the bowel preparation was adequate to identify polyps. Findings: ?Skin tags were found on perianal exam. ?A 7 mm polyp was found in the recto-sigmoid colon. The polyp was ?semi-pedunculated. The polyp was removed with a hot snare. Resection and ?retrieval were complete. ?Multiple small and large-mouthed diverticula were found in the sigmoid ?colon, descending colon and distal ascending colon. ?The exam was otherwise without abnormality on direct and retroflexion ?views. Estimated Blood Loss: ??Estimated blood loss: none. Impression: ?- Perianal skin tags found on perianal??exam. ?- One 7 mm polyp at the recto-sigmoid colon, removed ?with a hot snare. Resected and retrieved. ?- Diverticulosis in the sigmoid colon, in the ?descending colon and in the distal ascending colon. ?- The examination was otherwise normal on direct and ?retroflexion views. Recommendation: ?- Discharge patient to home. ?- High fiber diet for the rest of the patient's life. ?- Repeat colonoscopy in 3 years for surveillance based ?on pathology results. ?- Return to my office in 1 week. Procedure Code(s): ? --- Professional --- ?56975, Colonoscopy, flexible; with removal of ?tumor(s), polyp(s), or other lesion(s) by snare ?technique Diagnosis Code(s): ?--- Professional --- ?K63.5,??Polyp of colon ?K64.4, Residual hemorrhoidal skin tags ?R10.13, Epigastric pain ?K57.30, Diverticulosis of large intestine without perforation or abscess ?without bleeding CPT copyright 2019 [employer]. All rights??reserved. The codes documented in this report are preliminary and upon director television news review may be revised to meet current compliance requirements. ??Higinio Membreno, DO Higinio Membreno DO 07/26/2020 10:18:03 AM Number of Addenda: 0 Note Initiated On: 07/26/2020 9:58 AM Authorizing ProviderResult TypeResult StatusHistorical Provider MDHEALTH MAINTENANCEFinal Result * DIABETES EYE EXAM (05/25/2020) Narrative Authorizing ProviderResult TypeResult StatusHistorical Provider MDHEALTH MAINTENANCEFinal Result * KENNETH Digital Screen Bilateral [[id number]] (05/21/2020)Anatomical RegionLaterality ModalityBreastBilateralMammographySpecimen (Source)Anatomical Location / LateralityCollection Method / VolumeCollection TimeReceived Time05/21/2020 Narrative Authorizing ProviderResult TypeResult StatusShivajenaro Webster MDIM MAMMOGRAPHY ORDERABLESEdited Result - Final * Lipid Panel (05/02/2020 9:40 AM EDT)ComponentValueRef RangeTest MethodAnalysis TimePerformed AtPathologist YyszhghjzAxsmycuthzr646<200 mg/dL05/02/2020 9:40 AM EDTMERCY LABORATORIESComment: Cholesterol Guidelines: <200 Desirable 200-240 ??Borderline >240 Undesirable HDL57>40 mg/dL05/02/2020 9:40 AM EDTMERCY LABORATORIESComment: HDL Guidelines: <40 Undesirable 40-59 ?Borderline >59 Desirable LDL Hkalouqgdtg578 - 130 mg/dL05/02/2020 9:40 AM EDTMERCY LABORATORIESComment: LDL Guidelines: <100 Desirable 100-129 ?? Near to/above Desirable 130-159 ?? Borderline >159 Undesirable Direct (measured) LDL and calculated LDL are not interchangeable tests. Chol/HDL Ratio3.0< 9:40 AM EDTMERCY LABORATORIESComment:Triglycerides 108<150 mg/dL05/02/2020 9:40 AM EDTMERCY LABORATORIESComment: Triglyceride Guidelines: <150 Desirable 150-199 ??Borderline 200-499 ??High >499 Very high Based on AHA Guidelines for fasting triglyceride, November 2011. VLDLNOT REPORTED1 - 30 mg/dL05/02/2020 9:40 AM EDTMERCY LABORATORIESSpecimen (Source)Anatomical Location / LateralityCollection Method / VolumeCollection TimeReceived TimeBLOOD SPECIMEN / Iogxjjn3205/02/2020 9:40 AM EDT05/02/2020 6:29 PM EDT Narrative Authorizing ProviderResult TypeResult StatusShivajenaro Webster MDCHEMISTRY ORDERABLESFinal ResultPerforming OrganizationAddressCity/State/ZIP CodePhone Number [place] [address] [place] [phone], [facility] [phone] * POCT Fecal Immunochemical Test (FIT) (05/01/2016)ComponentValueRef RangeTest MethodAnalysis TimePerformed AtPathologist SignatureOccult Blood Fecalneg ControlpresentSpecimen (Source)Anatomical Location / LateralityCollection Method / VolumeCollection TimeReceived TimeSTOOL SPECIMEN / Unknown Narrative Authorizing ProviderResult TypeResult StatusChamyrtle Robins MDPOINT OF CARE TEST ORDERABLESFinal Result from Last 3 Months or Most Recently Relevant to Health Maintenance Insurance * Guarantor: Eliana ViktorefeAccoadrián TypeRelation to PatientDate of BirthPhone Billing AddressPersonal/QgoybtEpkm57/15/1956 [id number] [address] * Guarantor: [place] ViktorefeAccoadrián TypeRelation to PatientDate of BirthPhone Billing AddressPersonal/GqvtjuAdjv79/15/1956 [address] [address] Care Teams Team MemberRelationshipSpecialtyStart DateEnd Agustin Licona MD [address] [place] [phone] PCP - GeneralFamily Medicine06/25/22
--- OUTSIDE RECORDS SUMMARY | 2025-01-26 16:24 | XMS_ITS | Clinical Summary ---
Author Organization [facility] Address [address] [place] [id number] Care Team Providers Care Court Operations Clerk Name Role Phone Unavailable Primary Care Provider Unavailabl e Allergies Active AllergyReactionsCriticalityNoted DateCommentsAtorvastatinGI Upset 02/12/2017 Other reaction(s): GI Disturbance Fluticasone PropionateOther: See Dgervrhn50/04/2018 Chapped lips Sulfa (Sulfonamide Antibiotics)PskidWuex31/26/1132HsbkefMniuMaf76/06/2014 Medications MedicationSigDispense QuantityRefillsLast FilledStart DateEnd DateStatus pioglitazone (ACTOS) 15 mg tablet Indications:Stage 5 chronic kidney disease due to hypertension (HCC),Diabetes mellitus with stage 5 chronic kidney disease (HCC)Take 1 tablet by mouth once daily. 1 tablet 11/24/2023ctive NIFEdipine ER (PROCARDIA XL) 60 mg 24 hr tablet Indications:Stage 5 chronic kidney disease due to hypertension (HCC),Diabetes mellitus with stage 5 chronic kidney disease (HCC)Take 1 tablet by mouth two times a day. 1 tablet 11/24/2023ctive cinacalcet (SENSIPAR) 30 mg tablet Indications:Stage 5 chronic kidney disease due to hypertension (HCC),Diabetes mellitus with stage 5 chronic kidney disease (HCC)Take 1 tablet by mouth once daily. 1 tablet 11/24/2023ctive omeprazole (PRILOSEC) 40 mg capsule Indications:Stage 5 chronic kidney disease due to hypertension (HCC),Diabetes mellitus with stage 5 chronic kidney disease (HCC)Take 1 capsule by mouth once daily. 1 capsule 11/24/2023ctive NaCl 0.9% solp 40.9 mL with sodium chloride 4 mEq/mL soln 36.4 mEq Indications:Stage 5 chronic kidney disease due to hypertension (HCC),Diabetes mellitus with stage 5 chronic kidney disease (HCC)Inject 5 % intravenously one time only. Eye DropsActive prednisoLONE acetate,PF 1 % ophthalmic suspension Indications:Stage 5 chronic kidney disease due to hypertension (HCC),Diabetes mellitus with stage 5 chronic kidney disease (HCC)Use 1 Drop in the right eye four times daily.Active glipiZIDE (GLUCOTROL) 5 mg tablet Indications:Stage 5 chronic kidney disease due to hypertension (HCC),Diabetes mellitus with stage 5 chronic kidney disease (HCC)Take 1 tablet (5 mg) by mouth daily before breakfast. 1 tablet 11/24/2023ctive hydrALAZINE (APRESOLINE) 50 mg tablet Indications:Stage 5 chronic kidney disease due to hypertension (HCC),Diabetes mellitus with stage 5 chronic kidney disease (HCC)Take 1 tablet by mouth three times a day. 1 tablet 11/24/2023ctive sodium bicarbonate 650 mg tablet TAKE 1 TAB BY MOUTH ONCE DAILY 30 tablet 12/02/2023ctive Active Problems No known active problems Social History Tobacco UseTypesPacks/DayYears UsedDateSmoking Tobacco: NeverSmokeless Tobacco: NeverArea Deprivation IndexAnswerDate RecordedNational Score (1-100), lower number is lower bljz212111/24/2023State Score (1-10), lower number is lower risk5 11/24/2023ata from: https://www.neighborhoodatlas.medicine.[facility].edu/. Last address used for [address]1regnantCommentsNoSex and Gender InformationValueDate RecordedSex Assigned at BirthNot on fileLegal Sex Ygtyot8511/20/2023 9:40 AM EDTGender IdentityNot on fileSexual OrientationNot on file Last Filed Vital Signs Vital SignReadingTime TakenCommentsBlood Vusimzzu708/6811/24/2023 9:56 AM EDT Oclhc975511/24/2023 9:56 AM EDTTemperature--Respiratory Yltc3193 9:56 AM EDTOxygen Vomoywuxuj72%11/24/2023 9:56 AM EDTInhaled Oxygen Concentration-- Jhntis31 kg (110 lb 3.7 oz)11/24/2023 9:56 AM QGFKugdwy278.3 cm (4' 10 ) 11/24/2023 9:56 AM EDTBody Mass Index23.041 9:56 AM EDT Plan of Treatment Health MaintenanceDue DateLast DoneCommentsAnxiety Otbwmxvxa98/15/1973Depression Ytrdspitr61/15/1973CT Foectnswktys15/15/2000Cologuard (FIT-DNA)05/25/1999 Emwtnxyrreh15/15/2000Colorectal Cancer Ofsojlhiz61/15/2000Fecal Occult Blood 05/25/19992521Ppcamneapdrxu18/15/2000Pneumococcal Vaccine: 50+ (1 of 1 - PCV) 2004Shingrix Vaccine (1 of 2)2004Mammogram Iulhrzblk83/13/2024 08/21/2022, 05/21/2020, 05/21/2020, Additional history existsAdvance Directive Qxydproula94/01/2025ovid-19 Vaccine (1 - season)2024Influenza Vaccine (#1)2024DTaP,Tdap,Td Vaccine (2 - Td or Tdap)5103/04/2014 Diabetes Gpikhprzu63/04/246061/05/2023, 11/24/2023, 10/31/2023, Additional history existsLipid Fjhatlyny89/02/2023, 05/02/2020, 02/14/2019, Additional history existsRSV Vaccine (1 - 1-dose 75+ series)2029Hepatitis C GrmnbxdtkHpvcfumtt61/11/2022one Density JfbqzrqfxVvpoztnhw01/13/2023 Procedures Procedure NamePriorityDate/TimeAssociated DiagnosisCommentsCOMPREHENSIVE METABOLIC SSWILTiaqztt50/15/2024 11:04 AM EDT Stage 5 chronic kidney disease due to hypertension (HCC) from Last 3 Months or Most Recently Relevant to Health Maintenance Results * (ABNORMAL) COMPREHENSIVE METABOLIC PANEL (11/24/2023 11:04 AM EDT)Component ValueRef RangeTest MethodAnalysis TimePerformed AtPathologist Signature Protein, Total7.36.3 - 8.0 g/dL11/24/2023 12:29 PM [facility] Albumin4.63.9 - 4.9 g/dL11/24/2023 12:29 PM [facility] LABORATORYCalcium, Total10.3(H)8.5 - 10.2 mg/dL11/24/2023 12:29 PM [facility] Bilirubin, Total0.50.2 - 1.3 mg/dL11/24/2023 12:29 PM EDT[facility] LABORATORYAlkaline Plwyogocqfm884(H)34 - 123 U/L1 12:29 PM [facility] BVFECEDJNJBLU4477 - 35 U/L1 12:29 PM [facility] XGYUXYVDCRJJY526 - 38 U/L1 12:29 PM [facility] LABORATORYGlucose 124(H)74 - 99 mg/dL11/24/2023 12:29 PM [facility] LABORATORYComment: The [place] Diabetes Association (ADA) provides guidance for cutoff values for fasting glucose andrandom glucose. The ADA defines fasting as no caloric intake for at least 8 hours. Fasting plasma glucose results between 100 to 125 mg/dL indicate increased risk for diabetes (prediabetes). Fasting plasma glucose results greater than or equal to 126 mg/dL meet the criteria for diagnosis of diabetes. In the absence of unequivocal hyperglycemia, results should be confirmed by repeat testing. In a patient with classic symptoms of hyperglycemia or hyperglycemic crisis, random plasma glucose results greater than or equal to 200 mg/dL meet the criteria for diagnosis of diabetes. Reference: Standards of Medical Care in Diabetes 2016, [place] Diabetes Association. Diabetes Care. 2016.39(Suppl 1). BUN64(H)7 - 21 mg/dL11/24/2023 12:29 PM [facility] LABORATORYCreatinine4.19 (H)0.58 - 0.96 mg/dL11/24/2023 12:29 PM [facility] ENYTPPSYXAJvbnkc443439 - 144 mmol/L1 12:29 PM [facility] LABORATORYPotassium4.53.7 - 5.1 mmol/L1 12:29 PM [facility] HADDOZJFFUPlxdzfyv66716 - 107 mmol/L 11/24/2023 12:29 PM [facility] WMHPNXUZUZSY349(L)22 - 30 mmol/L10/ 12:29 PM [facility] LABORATORYAnion Gap17(H)8 - 15 mmol/L1 12:29 PM [facility] LABORATORYEstimated Glomerular Filtration Rate11(L)>=60 mL/min/1.73m 11/24/2023 12:29 PM [facility] LABORATORYComment:Estimated Glomerular Filtration Rate (eGFR) is calculated using the 2020 CKD-EPI creatinine equation. This equation utilizes serum creatinine, sex, and age as parameters. The creatinine assay has traceable calibration to isotope dilution-mass spectrometry. Refer to KDIGO guidelines for clinical interpretation. In patients with unstable renal function, e.g. those with acute kidney injury, the eGFRmay not accurately reflect actual GFR.Specimen (Source)Anatomical Location / LateralityCollection Method / VolumeCollection TimeReceived TimeBloodBLOOD SPECIMEN / UnknownVenipuncture / Mgvpztk1711/24/2023 11:04 AM EDT1 11:05 AM EDT Narrative Authorizing ProviderResult TypeResult StatusDaniyuni Akhtar DOLABORATORYFinal ResultPerforming OrganizationAddressCity/State/ZIP CodePhone Number [facility] [place] [address], from Last 3 Months or Most Recently Relevant to Health Maintenance Insurance [address] [place] [address]
[2025-01-26 16:46] VITALS: O2SAT 93
--- NOTE | 2025-01-26 16:46 | ED_ITS ---
HPI HPI - General Adult General Chief complaint: Nausea/Vomiting/Diarrhea Stated complaint: VOMITING, COUGH, NOT EATING Time Seen by Provider: 01/26/25 15:42 Source: patient and family Mode of arrival: Wheelchair Limitations: no limitations History of Present Illness HPI narrative: The patient is a dialysis patient who is presenting to us after she had her dialysis session today. With a complaint of almost 24 hours history of nausea vomiting and fever and chills and cough Patient go to dialysis to Thursday and Thursday And she does dialysis through her left arm fistula No other complaint of shortness of breath or any chest pain or chest pressure Related Data Previous Rx's ?Medication ?Instructions ?Recorded ondansetron 4 mg disintegrating 4 mg PO Q8H PRN nausea and 01/30/23 tablet vomiting 48 hours #7 tabs ondansetron 4 mg disintegrating 4 mg PO Q8H PRN nausea and 01/26/25 tablet vomiting 5 days #15 tabs oseltamivir 30 mg capsule (Tamiflu) 30 mg PO DAILY 4 d ays #4 caps 01/26/25 Allergies Allergy/AdvReac Type Severity Reaction Status Date / Time Sulfa (Sulfonamide Allergy Severe Unknown Verified 01/26/25 15:28 Antibiotics) Opioid HPI Opioid Management Most Recent Opioid Data: Last APR Pain Assessment Today, 15:58 Review of Systems ROS Status of ROS 10 or more systems reviewed and unremark able except as noted in history and below PFSH PFSH Social History Little interest or pleasure in doing things: not at all Feeling down, depressed, or hopeless: not at all Exam Narrative Exam Narrative: Nurses notes and vital signs reviewed and patient is not hypoxic. General: Well-appearing and in no apparent distress. Skin: Warm, dry, no pallor noted. No rash. Head: Normocephalic, atraumatic. Neck: Supple, non-tender. Cardiovascular: Regular Rate and Rhythm without murmur, gallop or rub. Respiratory: No accessory muscle use or respiratory distress. Lungs are clear to auscultation, no wheezing, rales or rhonchi Chest Wall: no tenderness Back: No midline thoracic or lumbar vertebral tenderness. No CVA tenderness Musculoskeletal: normal ROM, no calf or popliteal tenderness, left arm fistula have a good thrill GI: Abdomen is soft, non-distended. Normal bowel sounds. No masses appreciated. No tenderness to palpation. No rebound, guarding, or rigidity noted. Neurological: A&O x4. No cranial nerve dysfunction observed. No truncal shai susan. Moves all extremities. Sensation intact. Psychiatric: Cooperative and interactive. Normal mood and affect. Constitutional Vital Signs, click to edit/add: Last Vital Signs Temp 103.5 F H 01/26/25 15:58 Pulse 99 H 01/26/25 15:28 Resp 18 01/26/25 15:28 BP 130/52 01/26/25 15:28 Pulse Ox 93 L 01/26/25 16:46 O2 Del Method Room Air 01/26/25 16:46 O2 Flow Rate 2 01/26/25 15:39 Course Vital Signs Vital signs: Vital Signs Temperature 103.2 F H 01/26/25 15:28 Pulse Rate 99 H 01/26/25 15:28 Respiratory Rate 18 01/26/25 15:28 Blood Pressure 130/52 01/26/25 15:28 Pulse Oximetry 96 01/26/25 15:28 Oxygen Delivery Method Room Air 01/26/25 15:28 Temperature 103.5 F H 01/26/25 15:58 Pulse Rate 99 H 01/26/25 15:28 Respiratory Rate 18 01/26/25 15:28 Blood Pressure 130/52 01/26/25 15:28 Pulse Oximetry 93 L 01/26/25 16:46 Oxygen Delivery Method Room Air 01/26/25 16:46 Oxygen Delivery Flow Rate 2 01/26/25 15:39 Medical Decision Making [facility] Narrative Medical decision making narrative: The patient EKG showing sinus rhythm with a heart rate of [address] elevation or depression Patient presentation mostly secondary to infection Initially the blood workup showed no leukocytosis and the chemistry was showing chronic kidney disease changes with no acute significant pathology The patient's COVID and flu test are positive for influenza A Patient provided with Tylenol for fever control The patient pulse ox was within normal and it was sometime fluctuating which is mostly a missed reading as the patient had a walk test with no difficulty breathing and she never had any distress or difficulty breathing anyway with the pulse ox staying between 91 and 93 while walking Patient was started on Tamiflu 30 mg daily due to her history of end-stage renal disease in addition to Zofran Patient was instructed about the importance of hydration and coming back to the ER in case of any new symptom or concerns Patient mentioned that she have her son who does not live far away from her and she is okay with going back home to hydrate and supportive care The patient to follow-up with the primary care within 2 to 3 days and to come back to the ER in case of any worsening of the current symptoms or any new symptoms or concerns Lab Data Labs: Lab Results 01/26/25 01/26/25 Range/Units 15:30 15:53 WBC 6.8 (4.0-11.0) 10^3/uL RBC 3.24 L (4.20-5.40) 10^6/uL Hgb 11.6 L (12.0-16.0) g/dL Hct 33.2 L (36.0-48.0) % MCV 102.5 H (81.0-99.0) fL MCH 35.8 H (26.7-34.0) pg MCHC 34.9 (29.9-35.2) g/dL RDW 11.6 (11.0-15.0) % Plt Count 149 L (150-450) 10^3/uL MPV 9.6 (9.5-13.5) fL Neut % (Auto) 74.6 (43.0-75.0) % Lymph % (Auto) 16.2 L (20.5-60.0) % [place] % (Auto) 7.5 (1.7-12.0) % Eos % (Auto) 1.3 (0.9-7.0) % Baso % (Auto) 0.1 L (0.2-2.0) % Neut # (Auto) 5.1 (1.4-6.5) 10^3/uL Lymph # (Auto) 1.1 L (1.2-3.8) 10^3/uL [place] # (Auto) 0.5 (0.3-0.8) 10^3/uL Eos # (Auto) 0.1 (0.0-0.7) 10^3/uL Baso # (Auto) 0.0 (0.0-0.1) 10^3/uL Abs Immat Gran (auto) 0.02 (0.00-0.03) 10^3/uL Imm/Tot Granulo (auto) 0.3 (0.0-0.5) % PT 11.3 (9.0-11.6) sec INR 1.08 Sodium 135 L (136-145) mmol/L Potassium 3.4 L (3.5-5.1) mmol/L Chloride 101 (98-107) mmol/L Carbon Dioxide 31.5 (21.0-32.0) mmol/L Anion Gap 5.9 BUN 5.0 L (7.0-18.0) mg/dL Creatinine 2.24 H (0.55-1.02) mg/dL Est GFR ( Amer) 26 L (>=60 mL/min/1.73m^2) Est GFR (Non-Af Amer) 22 L (>=60 mL/min/1.73m^2) BUN/Creatinine Ratio 2.2 Glucose 139 H (74-106) mg/dL Lactate 1.0 (0.4-2.0) mmol/L Calcium 8.6 (8.5-10.1) mg/dL Total Bilirubin 0.4 (0.2-1.0) mg/dL AST 65 H (15-37) U/L ALT 45 (14-59) U/L Alkaline Phosphatase 186 H (46-116) U/L Total Protein 6.7 (6.4-8.2) g/dL Albumin 3.4 (3.4-5.0) g/dL Globulin 3.3 g/dL Albumin/Globulin Ratio 1.0 Influenza Type A Ag Positive A Influenza Type B Ag Negative SARS-CoV-2 Ag (CV2AG) Negative (NEGATIVE) Discharge Plan Discharge Chief Complaint: Nausea/Vomiting/Diarrhea Clinical Impression: Influenza A Patient Disposition: Home, Self-Care Time of Disposition Decision: 16:46 Condition: Good Prescriptions / Home Meds: New ondansetron 4 mg tablet,disintegrating 4 mg PO Q8H PRN (Reason: nausea and vomiting) 5 Days Qty: 15 0RF oseltamivir [Tamiflu] 30 mg capsule 30 mg PO DAILY 4 Days Qty: 4 0RF No Action ondansetron 4 mg tablet,disintegrating 4 mg PO Q8H PRN (Reason: nausea and vomiting) 2 Days Qty: 7 0RF Print Language: Thai Instructions: Influenza (ED) Referrals: Physician,Non-Staff, MD [Primary Care Provider] - 1 week
[2025-01-26] MEDS: OSELTAMIVIR PHOSPHATE 30 MG CAPSULE PO (16:55)
== END 2025-01-26 17:09 | disposition home or self-care (01) ==
PROVIDERS: Emergency Provider Emergency Medicine
DX: J10.1 Influenza due to other identified influenza virus with other respiratory manifestations (principal); R50.9 Fever, unspecified; Z99.2 Dependence on renal dialysis; N18.6 End stage renal disease
CPT/HCPCS: 36415; 71045; 80053; 83605; 85025; 85610; 87804; 87811; 93005; 99284